=== PATIENT | male | born 1985 | race Caucasian/White ===

== ENCOUNTER 2020-06-20 18:02 | Emergency (ER) | payer BC, SELFPAY ==
[2020-06-20 18:10] VITALS: BP 132/71; PULSE 84; RESP 18; TEMP 36.6; O2SAT 96; BMI 33.9
--- NOTE | 2020-06-20 19:43 | ED_ITS ---
HPI - SOB/Dyspnea General Chief Complaint: Dyspnea Stated Complaint: sob, asthma Time Seen by Provider: 06/20/20 22:25 Source: patient Mode of arrival: ambulatory Limitations: no limitations History of Present Illness HPI Narrative: 35-year-old male with past medical history of asthma and cat allergy presents with 2 days of shortness of breath. He has been using his albuterol inhaler with poor effect. He is allergic to cats, does have 3 cats that live in his home and takes [id number] allergy medications on a daily basis. He states that his asthma symptoms and shortness of breath has worsened over the past 6 months. He does have some nasal and chest congestion, denies sick contacts and states to have been wearing a mask at all times when exposed to other persons. At this time he denies chest pain and pressure, palpitations, abdominal pain, abdominal distention, dysuria, hematuria, fevers, chills, and edema. MD elicited complaint: shortness of breath and asthma attack Pertinent past history: asthma Onset (ago): day(s) (2) Context: allergen exposure Timing: constant Severity: moderate Exacerbating factors: exertion, movement, coughing, inspiration, talking, cold air and deep breaths Relieving factors: nothing Known history of: asthma Associated symptoms: cough, wheezing and chest congestion Treatment prior to arrival: bronchodilator Related Data Home oxygen amount: none Previous Rx's Medication Instructions Recorded albuterol sulfate 2 puff INHALATION Q4-6H PRN #8.5 g 06/20/20 prednisone 60 mg PO DAILY 5 Days #15 tab 06/20/20 Allergies Allergy/AdvReac Type Severity Reaction Status Date / Time Cat/Feline Product Allergy Unknown UNKNOWN Uncoded 02/23/20 15:40 Derivatives Chocolate Allergy Unknown ANAPHYLAXIS Uncoded 02/23/20 15:40 Review of Systems Review of Systems: Constitutional: No Fever, No Chills ENT/Mouth: No Hoarseness, No sore throat, No Rhinorrhea Eyes: No Redness, No Discharge, No Vision Changes Cardiovascular: No Chest Pain, positive SOB, positive Dyspnea on Exertion, No Edema Respiratory: positive Cough, No Sputum, positive Wheezing, Gastrointestinal: No Nausea, No Vomiting, No Diarrhea, No abdominal Pain Genitourinary: No Dysuria, No Hematuria Musculoskeletal: No joint pain, No Myalgias Skin: No rash Neuro: No Weakness, No Numbness, No Headache Psych: No anxiety, depression Heme/Lymph: No Bruising, No Bleeding Endocrine: No Polyuria, No Polydipsia Yes all other systems are reviewed and are negative [facility] Past Medical History Attestation statement: The following information was validated with the patient. Medical History Asthma Eczema Social History Social History Advance Directives: No Advance Directives Information Provided: Yes Physical Exam Vital Signs: Vital Signs: Last Vital Signs Temp 97.9 F 06/20/20 18:10 Pulse 86 06/20/20 22:01 Resp 18 06/20/20 22:01 BP 133/62 06/20/20 22:01 Pulse Ox 97 06/20/20 22:01 Body Mass Index 33.9 Appearance: Alert. Oriented X3. Mild distress. Eyes: Pupils equal, round and reactive to light. ENT: Pharynx normal. Neck: Normal inspection. Neck supple. CVS: Normal heart rate and rhythm. Pulses normal. Respiratory: Mild respiratory distress, respiration rate 22, lung sounds diminished, inspiratory and expiratory wheezing throughout all lobes. Abdomen: Soft and nontender. Skin: Skin warm and dry. Normal skin color. Normal skin turgor. Extremities: No lower extremity edema. Neuro: No motor deficit. No sensory deficit. Course Course Course Narrative: 35-year-old male past medical history of asthma presents with 2 days of shortness of breath, cough, wheezing. He has been using his albuterol inhaler with poor effect. Will order dexamethasone, magnesium, L of normal saline. CBC, Chem 7, chest x-ray and COVID swab pending. Lab values are negative with no acute findings, chest x-ray is negative, COVID, influenza and RSV negative. At 10:52 p.m. Lung sounds have improved, respiration rate 16 even unlabored. Plan of care is to discharge home with prescription for prednisone and albuterol inhaler refill. Patient does understand if symptoms persist that he must return to the emergency department immediately. He does understand that although his COVID test is negative that he must maintain precautions. Patient verbalized understanding of and agrees to plan of care to discharge home. MDM - SOB/Dyspnea Differential Diagnosis Differential diagnosis: Likely acute exacerbation of chronic obstructive airways disease, pneumonia and asthma with exacerbation Medical Records Attestation: I reviewed the patient's medical records. Lab Data Attestation: I reviewed the patient's lab results. Result diagrams: 06/20/20 20:25 06/20/20 20:25 Labs: Lab Results 06/20/20 06/20/20 06/20/20 Range/Units 20:25 20:25 20:25 WBC 9.4 (4.8-10.8) X10*3/uL RBC 4.88 (4.60-5.80) X10*6/uL Hgb 14.5 (14.0-18.0) g/dl Hct 42.0 (42-52) % MCV 86.1 (80-98) fL MCH 29.7 (27.0-33.0) pg MCHC 34.5 (31.0-36.0) g/dl RDW 12.6 (11.0-16.0) % Plt Count 305 (160-400) X10*3/uL MPV 11.1 (9.4-12.4) fL Immature Gran % (Auto) 0.4 (0.0-0.4) % Neut % (Auto) 49.3 (45-73) % Lymph % (Auto) 34.5 (20-40) % [place] % (Auto) 8.1 (2-11) % Eos % (Auto) 6.9 H (0-4) % Baso % (Auto) 0.8 (0-2) % Lymph # (Auto) 3.3 (1.2-4.9) X10*3/uL [place] # (Auto) 0.8 (0.1-1.2) X10*3/uL Eos # (Auto) 0.7 H (0.0-0.4) X10*3/uL Baso # (Auto) 0.1 (0.0-0.2) X10*3/uL Abs Immat Gran (auto) 0.04 H (0.00-0.03) X10*3/uL Absolute Neuts (auto) 4.6 (2.0-8.3) X10*3/uL Absolute Nucleated RBC 0.000 (0.0-0.012) X10*3/uL Nucleated RBC % (auto) 0.0 (0.0-0.2) /100WBC Sodium 140 (135-145) mmol/L Potassium 4.3 (3.3-5.1) mmol/l Chloride 105 (96-108) mmol/L Carbon Dioxide 25 (22-29) mmol/L Anion Gap 14 (12-20) BUN 16 (9-16) mg/dL Creatinine 1.01 (0.5-1.4) mg/dL Estim Creat Clear Calc 135.2 Estimated GFR > 60 Random Glucose 99 (60-115) mg/dL Calcium 9.7 (8.4-10.2) mg/dL Magnesium 2.2 (1.6-2.6) mg/dL Coronavirus (PCR) NEGATIVE (Negative) Influenza Type A (PCR) NEGATIVE (Negative) Influenza Type B (PCR) NEGATIVE (Negative) RSV RNA Qual (PCR) NEGATIVE (Negative) Imaging Data Chest x-ray: Attestation: I personally reviewed and interpreted this imaging study as follows: Radiologist's impression: EXAMINATION: XR CHEST CLINICAL INFORMATION: Shortness of breath, asthma COMPARISON: 03/28/2019 TECHNIQUE: Frontal view of the chest was obtained. FINDINGS: No significant abnormality is noted involving the heart, lungs, mediastinum, bony thorax or soft tissues. XR/XR chest 1V IMPRESSION: Unremarkable examination. ECG Data Attestation: I personally reviewed and interpreted this ECG as follows: ECG interpretation date: 06/20/20 Prior ECG tracings: not available for review Discharge Plan Discharge Clinical Impression: Asthma with exacerbation Qualifiers: Asthma severity: moderate Asthma persistence: persistent Qualified Code(s): J4 5.41 - Moderate persistent asthma with (acute) exacerbation Patient Disposition: Home, Self-Care Instructions: Asthma (ED), Moderate and Severe Persistent Asthma (ED) Additional Instructions: You were evaluated for shortness of breath and cough. Your COVID, influenza and RSV test were negative. Chest x-ray negative for acute findings. Please continue to take your asthma medications as directed. Please take prednisone as directed. Take this medication in the morning. Drink plenty of fluids. If symptoms persist or get worse please return to emergency department immediately. Thank you for choosing this emergency department for evaluation. Please follow-up with primary care physician as needed. Return to the emergency department for any new, concerning, or worsening symptoms. Prescriptions: New prednisone 20 mg tablet 60 mg PO DAILY 5 Days Qty: 15 RF: 0 albuterol sulfate 90 mcg/actuation HFA aerosol inhaler 2 puff inhalation Q4-6H PRN (Reason: shortness of breath or wheezing) Qty: 8.5 RF: 0 Interventions: ED Discharge Assessment Last Done: 06/20/20 22:48 Discharge Date/Time: 06/20/20 22:51
--- NOTE | 2020-06-20 19:47 | XR_ITS ---
EXAMINATION: XR CHEST CLINICAL INFORMATION: Shortness of breath, asthma COMPARISON: 03/28/2019 TECHNIQUE: Frontal view of the chest was obtained. FINDINGS: No significant abnormality is noted involving the heart, lungs, mediastinum, bony thorax or soft tissues. XR/XR chest 1V IMPRESSION: Unremarkable examination.
--- NOTE | 2020-06-20 19:49 | ECG_ITS ---
Test Reason : SOB Blood Pressure : / mmHG Vent. Rate : 086 BPM Atrial Rate : 086 BPM P-R Int : 152 ms QRS Dur : 098 ms QT Int : 390 ms P-R-T Axes : 073 -06 038 degrees QTc Int : 466 ms Normal sinus rhythm Cannot rule out Inferior infarct , age undetermined Abnormal ECG When compared with ECG of 28-MAR-2019 23:35, Incomplete right bundle branch block is no longer Present Referred By: Sherly Garcia Electronically Signed By:DEN CASTRO MD
[2020-06-20] MEDS: 0.9 % Sodium Chloride 1,000 ML 999 ML IVCONT (20:26)
[2020-06-20] MEDS: dexAMETHasone sod phosphate 4 MG/ML VIAL 6 MG IVPUSH (20:30)
[2020-06-20] MEDS: Magnesium Sulfate/H2O 2 GM/50 ML PIGGYBACK IV (20:31)
[2020-06-20 20:34] LABS: MANUAL DIFF FLAG NO
[2020-06-20 20:37] LABS: Basophils Absolute Auto 0.1 X10*3/uL (0.0-0.2); Basophils Percent Auto 0.8 % (0-2); Eosinophils Absolute Auto 0.7 X10*3/uL (0.0-0.4); Eosinophils Percent Auto 6.9 % (0-4); Hemoglobin 14.5 g/dl (14.0-18.0); Imm Gran Abs Auto 0.04 X10*3/uL (0.00-0.03); Imm Gran Pct Auto 0.4 % (0.0-0.4); Lymphocytes Absolute Auto 3.3 X10*3/uL (1.2-4.9); Lymphocytes Percent Auto 34.5 % (20-40); Mean Corpuscular HGB Conc 34.5 g/dl (31.0-36.0); Mean Corpuscular Hemoglobin 29.7 pg (27.0-33.0); Mean Corpuscular Volume 86.1 fL (80-98); Mean Platelet Volume 11.1 fL (9.4-12.4); Monocytes Absolute Auto 0.8 X10*3/uL (0.1-1.2); Monocytes Percent Auto 8.1 % (2-11); Neutrophils Absolute Auto 4.6 X10*3/uL (2.0-8.3); Neutrophils Percent Auto 49.3 % (45-73); Platelet Count 305 X10*3/uL (160-400); Red Blood Count 4.88 X10*6/uL (4.60-5.80); Red Cell Distribution Width 12.6 % (11.0-16.0); White Blood Count 9.4 X10*3/uL (4.8-10.8)
[2020-06-20] MEDS: Albuterol Sulfate (0.083%) 2.5 MG/3 ML VIAL.NEB 7.5 MG INHALE (20:59)
[2020-06-20 21:00] VITALS: PULSE 84; O2SAT 96
[2020-06-20 21:01] LABS: Anion Gap 14 (12-20); Blood Urea Nitrogen 16 mg/dL (9-16); Calcium 9.7 mg/dL (8.4-10.2); Carbon Dioxide 25 mmol/L (22-29); Chloride 105 mmol/L (96-108); Creatinine Clr Calc Pharmacy 135.2; Estimated Glomerular Filt Rate > 60; Glucose Random 99 mg/dL (60-115); Magnesium 2.2 mg/dL (1.6-2.6); Potassium 4.3 mmol/l (3.3-5.1); Sodium 140 mmol/L (135-145)
[2020-06-20 21:12] LABS: Influenza A PCR NEGATIVE (Negative); Influenza B PCR NEGATIVE (Negative); Resp Syncy Virus RNA Qual PCR NEGATIVE (Negative); SARS COV2 PCR INHOUSE NEGATIVE (Negative)
[2020-06-20 22:01] VITALS: BP 133/62; PULSE 86; RESP 18; O2SAT 97
== END 2020-06-20 22:51 | disposition home or self-care (01) ==
PROVIDERS: Nurse Practitioner Family; Emergency Provider Internal Medicine
DX: J45.41 Moderate persistent asthma with (acute) exacerbation (principal); Z79.899 Other long term (current) drug therapy; Z20.822 Contact with and (suspected) exposure to COVID-19
CPT/HCPCS: 0241U; 36415; 71045; 80048; 83735; 85025; 93005; 94640; 94644; 96361; 96365; 96375; 99283; 99284; J1100; J3475

== ENCOUNTER 2020-11-01 11:07 | Emergency (ER) | payer OTHER, BC, SELFPAY ==
[2020-11-01 11:13] VITALS: BP 129/69; PULSE 82; RESP 18; TEMP 36.5; O2SAT 100; BMI 34.4
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
== END 2020-11-01 12:34 | disposition home or self-care (01) ==
PROVIDERS: Emergency Provider Emergency Medicine; PCP Internal Medicine
DX: S16.1XXA Strain of muscle, fascia and tendon at neck level, initial encounter (principal); M54.2 Cervicalgia; V40.5XXA Car driver injured in collision with pedestrian or animal in traffic accident, initial encounter; Y93.9 Activity, unspecified; Y92.410 Unspecified street and highway as the place of occurrence of the external cause; Y99.9 Unspecified external cause status; Z79.899 Other long term (current) drug therapy
CPT/HCPCS: 99283

== ENCOUNTER 2020-11-23 13:21 | Emergency (ER) | payer BC, SELFPAY ==
--- NOTE | ~2020-11-23 | XR_ITS ---
EXAMINATION: XR CHEST CLINICAL INFORMATION: Wheezing, SOB. COMPARISON: None TECHNIQUE: 2 views of the chest were obtained. FINDINGS: No significant abnormality is noted involving the heart, lungs, mediastinum, bony thorax or soft tissues. XR/XR chest 2V IMPRESSION: Unremarkable chest exam.
[2020-11-23 14:56] VITALS: BP 128/84; PULSE 101; RESP 20; TEMP 37; O2SAT 94; BMI 33.9
[2020-11-23 16:28] LABS: MANUAL DIFF FLAG NO
[2020-11-23 16:31] LABS: Basophils Absolute Auto 0.1 X10*3/uL (0.0-0.2); Basophils Percent Auto 0.4 % (0-2); Eosinophils Absolute Auto 0.6 X10*3/uL (0.0-0.4); Eosinophils Percent Auto 4.8 % (0-4); Hematocrit 42.9 % (42-52); Hemoglobin 14.6 g/dl (14.0-18.0); Imm Gran Abs Auto 0.07 X10*3/uL (0.00-0.03); Imm Gran Pct Auto 0.5 % (0.0-0.4); Lymphocytes Percent Auto 15.1 % (20-40); Mean Corpuscular Hemoglobin 29.4 pg (27.0-33.0); Mean Corpuscular Volume 86.3 fL (80-98); Mean Platelet Volume 11.2 fL (9.4-12.4); Monocytes Absolute Auto 1.3 X10*3/uL (0.1-1.2); Monocytes Percent Auto 9.7 % (2-11); Neutrophils Absolute Auto 9.3 X10*3/uL (2.0-8.3); Neutrophils Percent Auto 69.5 % (45-73); Platelet Count 275 X10*3/uL (160-400); Red Blood Count 4.97 X10*6/uL (4.60-5.80); Red Cell Distribution Width 12.5 % (11.0-16.0); White Blood Count 13.4 X10*3/uL (4.8-10.8)
[2020-11-23 16:56] LABS: Alanine Aminotransferase 80 U/L (0-40); Albumin Level 4.9 g/dL (3.5-5.0); Alkaline Phosphatase 71 U/L (39-117); Anion Gap 15 (12-20); Aspartate Amino Transferase 27 U/L (5-37); Bilirubin Total 0.5 mg/dL (0.0-1.0); Blood Urea Nitrogen 13 mg/dL (9-16); Calcium 9.8 mg/dL (8.4-10.2); Carbon Dioxide 26 mmol/L (22-29); Chloride 104 mmol/L (96-108); Creatinine Clr Calc Pharmacy 133.9; Estimated Glomerular Filt Rate > 60; Glucose Random 83 mg/dL (60-115); Potassium 4.6 mmol/L (3.3-5.1); Sodium 140 mmol/L (135-145); Total Protein 7.5 g/dL (6.5-8.0)
--- NOTE | 2020-11-23 16:58 | ED.SOB ---
HPI - SOB/Dyspnea General Chief Complaint: Dyspnea Stated Complaint: asthma Time Seen by Provider: 11/23/20 16:49 Source: patient Mode of arrival: ambulatory History of Present Illness HPI Narrative: 35-year-old male with a past medical history of asthma, eczema, presenting to ED complaining of sore throat x3 days, and SOB/wheezing, cough, and chest tightness/pain when coughing x1 day. Admits was tested for COVID-19 recently and negative as was trying to seek care for sore throat but would not be seen without COVID-19 testing. Has been using inhalers at home without relief. Denies fever, chills, recent travel, LE edema, calf pain, abdominal pain Related Data Previous Rx's Medication Instructions Recorded albuterol sulfate 2 puff INHALATION Q4-6H PRN #8.5 g 06/20/20 prednisone 60 mg PO DAILY 5 Days #15 tab 06/20/20 cyclobenzaprine 10 mg PO TID PRN #10 tab 11/01/20 ibuprofen 600 mg PO Q8H PRN #20 tab 11/01/20 lidocaine [Lidoderm] 1 patch TOPICAL DAILY #15 ea 11/01/20 benzonatate [Tessalon Perles] 100 mg PO TID PRN #14 cap 11/23/20 fluticasone propionate [Flonase 2 spray INTRANASAL DAILY #16 g 11/23/20 Allergy Relief] prednisone 40 mg PO DAILY 5 Days #10 tab 11/23/20 Allergies Allergy/AdvReac Type Severity Reaction Status Date / Time Cat/Feline Product Allergy Unknown UNKNOWN Uncoded 02/23/20 15:40 Derivatives Chocolate Allergy Unknown ANAPHYLAXIS Uncoded 02/23/20 15:40 Review of Systems Review of Systems: Constitutional: No Fever, No Chills, No Fatigue, No Malaise Cardiovascular: + Chest Pain when coughing, + SOB, No Dyspnea on Exertion, No Orthopnea Respiratory: + Cough, No Sputum, + Wheezing, + Dyspnea Gastrointestinal: No Nausea, No Vomiting, No Abdominal pain Musculoskeletal: No joint pain, No Myalgias Skin: No Skin Lesions, No rash Neuro: No Weakness, No Numbness, No Headache Yes all other systems are reviewed and are negative PMFSH Past Medical History Attestation statement: The following information was validated with the patient. Medical History Asthma Eczema Social History Social History Patient Tobacco Use Status: Current everyday Tobacco user Advance Directives: No Advance Directives Information Provided: No Physical Exam Vital Signs: Vital Signs: Last Vital Signs Temp 98.6 F 11/23/20 14:56 Pulse 103 H 11/23/20 18:00 Resp 14 11/23/20 18:00 BP 128/84 11/23/20 14:56 Pulse Ox 96 11/23/20 18:00 Body Mass Index 33.9 Const: General: cooperative and healthy appearing Orientation/consciousness: patient oriented x3 Limitations: no limitations HENMT: Head: Yes normal to inspection Ears: hearing grossly normal bilaterally General nose exam: Normal external nose present Face and sinus: Yes normal facial exam Throat: Yes posterior oropharynx normal, Yes tonsils normal, Yes uvula midline, No peritonsillar mass and No uvula laterally displaced Eyes: General: appearance normal, both eyes and all related structures EOM: EOMs intact bilaterally Neck: Neck: Yes normal visual inspection and Yes no meningeal signs Resp: Effort & Inspection: normal respiratory effort Auscultation: clear to auscultation bilaterally and wheezes expiratory wheezes and throughout Cardio: Rate: regular rate Heart sounds: S1 normal heart sound present and S2 normal heart sound present GI: Inspection: Yes normal to inspection Palpation (GI): Soft to palpation Skin: Rashes: no rashes Wounds: no wounds Neuro: General: patient oriented x3 and no meningeal signs Gait exam (Neuro): Normal gait present Extrem: General: Yes normal to inspection, Yes no pedal edema and Yes no calf tenderness Course Course Course Narrative: -leukocytosis of 13.4, labs otherwise unremarkable, COVID-19 negative, rapid strep negative XR chest 2V IMPRESSION: Unremarkable chest exam. -1900--on re-evaluation lungs CTA. Patient reports symptomatic improvement. Worrisome signs and symptoms and strict return precautions discussed. He verbalized understanding feel safe for discharge home MDM - SOB/Dyspnea MDM Narrative Medical decision making narrative: 35-year-old male with a past medical history of asthma, eczema, presenting to ED complaining of sore throat x3 days, and SOB/wheezing, cough, and chest tightness/pain when coughing x1 day. On exam initially tachycardic likely from albuterol, nontoxic appearing, diffuse expiratory wheezing throughout, no pedal edema or calf tenderness, oropharynx WNL. Concern for asthma exacerbation vs viral syndrome/COVID-19 vs pneumonia. Low concern for ACS/PE or strep pharyngitis. Plan: EKG, labs, CXR, COVID-19 testing, rapid strep, albuterol, magnesium, Solu-Medrol, reassess Lab Data Result diagrams: 11/23/20 16:04 11/23/20 16:04 Labs: Lab Results 11/23/20 11/23/20 11/23/20 Range/Units 16:04 16:04 17:46 WBC 13.4 H (4.8-10.8) X10*3/uL RBC 4.97 (4.60-5.80) X10*6/uL Hgb 14.6 (14.0-18.0) g/dl Hct 42.9 (42-52) % MCV 86.3 (80-98) fL MCH 29.4 (27.0-33.0) pg MCHC 34.0 (31.0-36.0) g/dl RDW 12.5 (11.0-16.0) % Plt Count 275 (160-400) X10*3/uL MPV 11.2 (9.4-12.4) fL Immature Gran % (Auto) 0.5 H (0.0-0.4) % Neut % (Auto) 69.5 (45-73) % Lymph % (Auto) 15.1 L (20-40) % [place] % (Auto) 9.7 (2-11) % Eos % (Auto) 4.8 H (0-4) % Baso % (Auto) 0.4 (0-2) % Lymph # (Auto) 2.0 (1.2-4.9) X10*3/uL [place] # (Auto) 1.3 H (0.1-1.2) X10*3/uL Eos # (Auto) 0.6 H (0.0-0.4) X10*3/uL Baso # (Auto) 0.1 (0.0-0.2) X10*3/uL Abs Immat Gran (auto) 0.07 H (0.00-0.03) X10*3/uL Absolute Neuts (auto) 9.3 H (2.0-8.3) X10*3/uL Absolute Nucleated RBC 0.000 (0.0-0.012) X10*3/uL Nucleated RBC % (auto) 0.0 (0.0-0.2) /100WBC Sodium 140 (135-145) mmol/L Potassium 4.6 (3.3-5.1) mmol/L Chloride 104 (96-108) mmol/L Carbon Dioxide 26 (22-29) mmol/L Anion Gap 15 (12-20) BUN 13 (9-16) mg/dL Creatinine 1.02 (0.5-1.4) mg/dL Estim Creat Clear Calc 133.9 Estimated GFR > 60 Random Glucose 83 (60-115) mg/dL Calcium 9.8 (8.4-10.2) mg/dL Total Bilirubin 0.5 (0.0-1.0) mg/dL AST 27 (5-37) U/L ALT 80 H (0-40) U/L Alkaline Phosphatase 71 (39-117) U/L Total Protein 7.5 (6.5-8.0) g/dL Albumin 4.9 (3.5-5.0) g/dL Coronavirus (PCR) (Negative) Influenza Type A (PCR) (Negative) Influenza Type B (PCR) (Negative) RSV RNA Qual (PCR) (Negative) S. pyogenes GrpA GHISLAINE Negative (Negative) 11/23/20 Range/Units 17:46 WBC (4.8-10.8) X10*3/uL RBC (4.60-5.80) X10*6/uL Hgb (14.0-18.0) g/dl Hct (42-52) % MCV (80-98) fL MCH (27.0-33.0) pg MCHC (31.0-36.0) g/dl RDW (11.0-16.0) % Plt Count (160-400) X10*3/uL MPV (9.4-12.4) fL Immature Gran % (Auto) (0.0-0.4) % Neut % (Auto) (45-73) % Lymph % (Auto) (20-40) % [place] % (Auto) (2-11) % Eos % (Auto) (0-4) % Baso % (Auto) (0-2) % Lymph # (Auto) (1.2-4.9) X10*3/uL [place] # (Auto) (0.1-1.2) X10*3/uL Eos # (Auto) (0.0-0.4) X10*3/uL Baso # (Auto) (0.0-0.2) X10*3/uL Abs Immat Gran (auto) (0.00-0.03) X10*3/uL Absolute Neuts (auto) (2.0-8.3) X10*3/uL Absolute Nucleated RBC (0.0-0.012) X10*3/uL Nucleated RBC % (auto) (0.0-0.2) /100WBC Sodium (135-145) mmol/L Potassium (3.3-5.1) mmol/L Chloride (96-108) mmol/L Carbon Dioxide (22-29) mmol/L Anion Gap (12-20) BUN (9-16) mg/dL Creatinine (0.5-1.4) mg/dL Estim Creat Clear Calc Estimated GFR Random Glucose (60-115) mg/dL Calcium (8.4-10.2) mg/dL Total Bilirubin (0.0-1.0) mg/dL AST (5-37) U/L ALT (0-40) U/L Alkaline Phosphatase (39-117) U/L Total Protein (6.5-8.0) g/dL Albumin (3.5-5.0) g/dL Coronavirus (PCR) NEGATIVE (Negative) Influenza Type A (PCR) NEGATIVE (Negative) Influenza Type B (PCR) NEGATIVE (Negative) RSV RNA Qual (PCR) NEGATIVE (Negative) S. pyogenes GrpA GHISLAINE (Negative) Discharge Plan Discharge Clinical Impression: Asthma with exacerbation Patient Disposition: Home, Self-Care Instructions: Asthma (ED) Additional Instructions: Your blood work was reassuring. You tested negative for the flu, RSV, and COVID-19. Her rapid strep is negative. Your x-ray was unremarkable. Continue to use your rescue inhaler and her nebulizer machine at home Prednisone as an oral steroid, take as prescribed. In addition use Flonase as a nasal decongestion. Tessalon Perles for cough If her symptoms persist or worsen, shortness of breath persists or worsens, you develop fever please return to the ED Prescriptions: New prednisone 20 mg tablet 40 mg PO DAILY 5 Days Qty: 10 RF: 0 benzonatate [Tessalon Perles] 100 mg capsule 100 mg PO TID PRN (Reason: cough) Qty: 14 RF: 0 fluticasone propionate [Flonase Allergy Relief] 50 mcg/actuation spray,suspension 2 spray intranasal DAILY Qty: 16 RF: 0 No Action prednisone 20 mg tablet 60 mg PO DAILY 5 Days Qty: 15 RF: 0 albuterol sulfate 90 mcg/actuation HFA aerosol inhaler 2 puff inhalation Q4-6H PRN (Reason: shortness of breath or wheezing) Qty: 8.5 RF: 0 cyclobenzaprine 10 mg tablet 10 mg PO TID PRN (Reason: muscle spasm) Qty: 10 RF: 0 lidocaine [Lidoderm] 5 % adhesive patch,medicated 1 patch topical DAILY Qty: 15 RF: 0 ibuprofen 600 mg tablet 600 mg PO Q8H PRN (Reason: pain) Qty: 20 RF: 0 Referrals: ED Physician,Generic [Emergency Provider] - 2 days
--- NOTE | 2020-11-23 17:03 | ECG_ITS ---
Test Reason : SHORTNESS OF BREATH Blood Pressure : / mmHG Vent. Rate : 096 BPM Atrial Rate : 096 BPM P-R Int : 158 ms QRS Dur : 096 ms QT Int : 350 ms P-R-T Axes : 060 014 057 degrees QTc Int : 442 ms Normal sinus rhythm Incomplete right bundle branch block Borderline ECG When compared with ECG of 20-JUN-2020 21:44, Incomplete right bundle branch block is now Present Minimal criteria for Inferior infarct are no longer Present Referred By: Joan Perry Electronically Signed By:ROSS RONQUILLO
[2020-11-23] MEDS: methylPREDNISolone Sod Succ 125 MG/2 ML VIAL IVPUSH (17:40)
[2020-11-23] MEDS: Magnesium Sulfate/H2O 2 GM/50 ML PIGGYBACK IV (17:40)
[2020-11-23] MEDS: Albuterol Sulfate (0.083%) 2.5 MG/3 ML VIAL.NEB 7.5 MG INHALE (17:45)
[2020-11-23 17:49] VITALS: PULSE 103; O2SAT 96
[2020-11-23 18:00] VITALS: PULSE 103; RESP 14; O2SAT 96
[2020-11-23 18:00] LABS: Strep A Nucleic Acid Negative (Negative)
[2020-11-23 18:30] LABS: Influenza A PCR NEGATIVE (Negative); Influenza B PCR NEGATIVE (Negative); Resp Syncy Virus RNA Qual PCR NEGATIVE (Negative); SARS COV2 PCR INHOUSE NEGATIVE (Negative)
== END 2020-11-23 19:18 | disposition home or self-care (01) ==
PROVIDERS: Physician Assistant; Emergency Provider Internal Medicine
DX: J45.901 Unspecified asthma with (acute) exacerbation (principal); Z79.899 Other long term (current) drug therapy; Z20.822 Contact with and (suspected) exposure to COVID-19
CPT/HCPCS: 0241U; 36415; 71046; 80053; 85025; 87651; 93005; 94640; 94644; 96365; 96366; 96375; 99284; 99285; J2930; J3475

== ENCOUNTER 2021-04-14 08:33 | Emergency (ER) | payer BC, SELFPAY ==
--- NOTE | ~2021-04-14 | XR_ITS ---
EXAMINATION: XR CHEST CLINICAL INFORMATION: Cough. COMPARISON: 11/23/2020 chest radiographs. TECHNIQUE: Frontal view of the chest was obtained. FINDINGS: No significant abnormality is noted involving the heart, lungs, mediastinum, bony thorax or soft tissues. XR/XR chest 1V IMPRESSION: No acute cardiopulmonary process.
[2021-04-14 08:39] VITALS: BP 121/72; PULSE 88; RESP 16; TEMP 36.6; O2SAT 95; BMI 34.2
--- NOTE | 2021-04-14 09:07 | ED.ASTHMA ---
HPI - Asthma General Chief Complaint: Asthma Stated Complaint: diff breathing Time Seen by Provider: 04/14/21 09:00 Source: patient Mode of arrival: ambulatory Limitations: no limitations History of Present Illness complaint: asthma attack , shortness of breath and wheezing Onset (ago): day(s) (last night) Severity: moderate Context: other (forgot to wear his respirator during karoline job at work) Associated symptoms: dry cough Asthma History: childhood onset Treatments Prior to Arrival: inhaled bronchodilator and other (tried his nebulizer without relief) Related Data Previous Rx's Medication Instructions Recorded albuterol sulfate 90 mcg/actuation 2 puff INHALATION Q4-6H PRN #8.5 g 06/20/20 aerosol inhaler prednisone 20 mg tablet 60 mg PO DAILY 5 Days #15 tab 06/20/20 cyclobenzaprine 10 mg tablet 10 mg PO TID PRN #10 tab 11/01/20 ibuprofen 600 mg tablet 600 mg PO Q8H PRN #20 tab 11/01/20 lidocaine 5 % topical patch 1 patch TOPICAL DAILY #15 ea 11/01/20 (Lidoderm) benzonatate 100 mg capsule 100 mg PO TID PRN #14 cap 11/23/20 (Tessalon Perles) fluticasone propionate 50 2 spray INTRANASAL DAILY #16 g 11/23/20 mcg/actuation nasal spray,suspension (Flonase Allergy Relief) prednisone 20 mg tablet 40 mg PO DAILY 5 Days #10 tab 11/23/20 albuterol sulfate 2.5 mg (3 mL) INHALATION Q4-6H PRN 04/14/21 #75 ml albuterol sulfate 90 mcg/actuation 2 puff INHALATION QID PRN #6.7 g 04/14/21 aerosol inhaler prednisone 20 mg tablet 60 mg PO DAILY 4 Days #12 tab 04/14/21 Allergies Allergy/AdvReac Type Severity Reaction Status Date / Time Cat/Feline Product Allergy Unknown UNKNOWN Uncoded 02/23/20 15:40 Derivatives Chocolate Allergy Unknown ANAPHYLAXIS Uncoded 02/23/20 15:40 Review of Systems Review of Systems: Constitutional : No Fever, No Chills ENT/Mouth : No Hoarseness, No sore throat, No Rhinorrhea Eyes: No Redness, No Discharge, No Vision Changes Cardiovascular : No Chest Pain, positive SOB, positive Dyspnea on Exertion, No Edema Respiratory : positive Cough, No Sputum, positive Wheezing, Gastrointestinal : No Nausea, No Vomiting, No Diarrhea, No abdominal Pain Genitourinary : No Dysuria, No Hematuria Musculoskeletal : No joint pain, No Myalgias Skin : No rash Neuro : No Weakness, No Numbness, No Headache Psych : No anxiety, depression All other systems reviewed and are negative [facility] Past Medical History Attestation statement: The following information was validated with the patient. Medical History Asthma Eczema Social History Social History Patient Tobacco Use Status: Current everyday Tobacco user Advance Directives: No Physical Exam Vital Signs: Vital Signs: Last Vital Signs Temp 98 F 04/14/21 08:39 Pulse 94 04/14/21 09:30 Resp 16 04/14/21 08:39 BP 121/72 04/14/21 08:39 Pulse Ox 95 04/14/21 08:39 Body Mass Index 34.2 Appearance: Alert. Oriented X3. No acute distress. Eyes: Pupils equal, round and reactive to light. ENT: Pharynx normal. Neck: Normal inspection. Neck supple. CVS: Normal heart rate and rhythm. Pulses normal. Respiratory: No respiratory distress. Breath sounds diminished Abdomen: Soft and nontender. Skin: Skin warm and dry. Normal skin color. Normal skin turgor. Extremities: No lower extremity edema. No calf ttp Neuro: Oriented X 3. No motor deficit. No sensory deficit. Course Course Course Narrative: no hypoxia feels better stable for DC MDM - Asthma MDM Narrative Medical decision making narrative: 35 yo male with asthma here with c/o dust exposure and cough - at this time will swab for COVID, CXR for pneumonitis - PO steroids, neb treatment no distress, anticipate he will need steroids to go home Lab Data Labs: Lab Results 04/14/21 Range/Units 09:12 COVID-19 (HUGO) Negative (Negative) COVID-19 Clin Com See Note Discharge Plan Discharge Clinical Impression: Asthma with acute exacerbation Patient Disposition: Home, Self-Care Instructions: Asthma (ED) Additional Instructions: return to ED for any worsening symptoms or concerns COVID NEGATIVE CHEST XRAY NORMAL START PREDNISONE ON 04/15 YOU WERE GIVEN A DOSE IN THE EMERGENCY DEPARTMENT ALREADY TODAY Prescriptions: New albuterol sulfate 2.5 mg /3 mL (0.083 %) solution for nebulization 2.5 mg inhalation Q4-6H PRN (Reason: bronchospasm) Qty: 75 RF: 0 prednisone 20 mg tablet 60 mg PO DAILY 4 Days Qty: 12 RF: 0 albuterol sulfate 90 mcg/actuation HFA aerosol inhaler 2 puff inhalation QID PRN (Reason: shortness of breath or wheezing) Qty: 6.7 RF: 0 No Action prednisone 20 mg tablet 60 mg PO DAILY 5 Days Qty: 15 RF: 0 albuterol sulfate 90 mcg/actuation HFA aerosol inhaler 2 puff inhalation Q4-6H PRN (Reason: shortness of breath or wheezing) Qty: 8.5 RF: 0 cyclobenzaprine 10 mg tablet 10 mg PO TID PRN (Reason: muscle spasm) Qty: 10 RF: 0 lidocaine [Lidoderm] 5 % adhesive patch,medicated 1 patch topical DAILY Qty: 15 RF: 0 ibuprofen 600 mg tablet 600 mg PO Q8H PRN (Reason: pain) Qty: 20 RF: 0 prednisone 20 mg tablet 40 mg PO DAILY 5 Days Qty: 10 RF: 0 benzonatate [Tessalon Perles] 100 mg capsule 100 mg PO TID PRN (Reason: cough) Qty: 14 RF: 0 fluticasone propionate [Flonase Allergy Relief] 50 mcg/actuation spray,suspension 2 spray intranasal DAILY Qty: 16 RF: 0 Referrals: Physician,None [Primary Care Provider] - 2 days (if not better) Stand Alone Forms: Work/School Release
[2021-04-14] MEDS: predniSONE 20 MG TABLET 60 MG PO (09:21)
[2021-04-14] MEDS: Albuterol Sulfate (0.083%) 2.5 MG/3 ML VIAL.NEB INHALE (09:27)
[2021-04-14 09:30] VITALS: PULSE 94; O2SAT 100
[2021-04-14 09:37] LABS: COVID-19 Test Negative (Negative); IDNOW Serial# 9DD0AD1C
== END 2021-04-14 10:06 | disposition home or self-care (01) ==
PROVIDERS: Emergency Provider Emergency Medicine
DX: J45.901 Unspecified asthma with (acute) exacerbation (principal); R06.02 Shortness of breath; Z20.822 Contact with and (suspected) exposure to COVID-19; F17.200 Nicotine dependence, unspecified, uncomplicated
CPT/HCPCS: 36415; 71045; 87635; 94640; 99283; 99284

== ENCOUNTER 2021-10-31 04:13 | Emergency (ER) | payer OTHER, BC, SELFPAY ==
--- NOTE | ~2021-10-31 | XR_ITS ---
EXAMINATION: XR CHEST CLINICAL INFORMATION: Right rib pain COMPARISON: 04/14/2021 TECHNIQUE: 2 views of the chest were obtained. FINDINGS: The lungs are clear with no focal consolidation. No evidence of pneumothorax, pulmonary edema, or pleural effusions. The cardiomediastinal silhouette is unremarkable. No acute osseous findings. XR/XR chest 2V IMPRESSION: No acute findings.
[2021-10-31 04:18] VITALS: BP 119/79; PULSE 78; RESP 16; TEMP 36.2; O2SAT 97; BMI 37.3
--- NOTE | 2021-10-31 05:45 | ED_ITS ---
HPI - General Adult General Chief complaint: General Medical Stated complaint: Rib/stomach pain Time Seen by Provider: 10/31/21 05:45 Source: patient Mode of arrival: ambulatory Limitations: no limitations History of Present Illness HPI narrative: Lifting something heavy felt pain on the right side. The pain states worse pain with deep breathing. Onset (ago): day(s) Location: back Radiation: back Severity: mild Exacerbating factors: movement Related Data Previous Rx's Medication Instructions Recorded albuterol sulfate 90 mcg/actuation 2 puff INHALATION Q4-6H PRN #8.5 g 06/20/20 aerosol inhaler prednisone 20 mg tablet 60 mg PO DAILY 5 Days #15 tab 06/20/20 cyclobenzaprine 10 mg tablet 10 mg PO TID PRN #10 tab 11/01/20 ibuprofen 600 mg tablet 600 mg PO Q8H PRN #20 tab 11/01/20 lidocaine 5 % topical patch 1 patch TOPICAL DAILY #15 ea 11/01/20 (Lidoderm) benzonatate 100 mg capsule 100 mg PO TID PRN #14 cap 11/23/20 (Tessalon Perles) fluticasone propionate 50 2 spray INTRANASAL DAILY #16 g 11/23/20 mcg/actuation nasal spray,suspension (Flonase Allergy Relief) prednisone 20 mg tablet 40 mg PO DAILY 5 Days #10 tab 11/23/20 albuterol sulfate 2.5 mg (3 mL) INHALATION Q4-6H PRN 04/14/21 #75 ml albuterol sulfate 90 mcg/actuation 2 puff INHALATION QID PRN #6.7 g 04/14/21 aerosol inhaler prednisone 20 mg tablet 60 mg PO DAILY 4 Days #12 tab 04/14/21 cyclobenzaprine 10 mg tablet 10 mg PO TID #10 tab 10/31/21 naproxen 500 mg tablet (Naprosyn) 500 mg PO BID #20 tab 10/31/21 Allergies Allergy/AdvReac Type Severity Reaction Status Date / Time Cat/Feline Product Allergy Unknown UNKNOWN Uncoded 10/31/21 04:21 Derivatives Chocolate Allergy Unknown ANAPHYLAXIS Uncoded 10/31/21 04:21 Review of Systems Constitutional: Constitutional: Reports no additional constitutional complaints Eyes: Eyes: Reports no additional eye complaints ENT: Denies dizziness Cardiovascular: Cardiovascular: Reports no additional cardiovascular complaints Respiratory: Respiratory: Reports as per HPI Gastrointestinal: Gastrointestinal: Reports no additional gastrointestinal complaints Musculoskeletal: Musculoskeletal: Reports no additional musculoskeletal complaints Integumentary/Breasts: Skin/Breast: Denies rash Neurologic: Reports system reviewed and no additional complaints, except as documented, Denies dizziness and Denies Sensory deficit (Neuro) Psychiatric: Psychiatric: Denies anxiety [facility] Past Medical History Medical History Asthma Eczema Social History Social History Patient Tobacco Use Status: Current everyday Tobacco user Advance Directives: No Advance Directives Information Provided: No Physical Exam ED Vital Signs: Vital Signs - 24 hr 10/31/21 04:18 Temperature 97.2 F Pulse Rate 78 Respiratory Rate 16 Blood Pressure 119/79 Pulse Oximetry 97 BMI result Body Mass Index 37.3 Neuro Sensory Exam: No Sensory deficit (Neuro) Course Reevaluation(s) Reevaluation #1: will treat patient for muscular thoracic back pain Time: 06:35 Medical Decision Making Imaging Data Chest x-ray: Radiologist's impression: FINDINGS: The lungs are clear with no focal consolidation. No evidence of pneumothorax, pulmonary edema, or pleural effusions. The cardiomediastinal silhouette is unremarkable. No acute osseous findings. XR/XR chest 2V IMPRESSION: No acute findings. Discharge Plan Discharge Clinical Impression: Back pain, thoracic Patient Disposition: Home, Self-Care Instructions: Thoracic Pain (ED) Prescriptions: New cyclobenzaprine 10 mg tablet 10 mg PO TID Qty: 10 0RF naproxen [Naprosyn] 500 mg tablet 500 mg PO BID Qty: 20 0RF No Action prednisone 20 mg tablet 60 mg PO DAILY 5 Days Qty: 15 0RF albuterol sulfate 90 mcg/actuation HFA aerosol inhaler 2 puff inhalation Q4-6H PRN (Reason: shortness of breath or wheezing) Qty: 8.5 0RF cyclobenzaprine 10 mg tablet 10 mg PO TID PRN (Reason: muscle spasm) Qty: 10 0RF lidocaine [Lidoderm] 5 % adhesive patch,medicated 1 patch topical DAILY Qty: 15 0RF Rx Instructions: leave on most painful area for up to 12 hrs ibuprofen 600 mg tablet 600 mg PO Q8H PRN (Reason: pain) Qty: 20 0RF prednisone 20 mg tablet 40 mg PO DAILY 5 Days Qty: 10 0RF benzonatate [Tessalon Perles] 100 mg capsule 100 mg PO TID PRN (Reason: cough) Qty: 14 0RF fluticasone propionate [Flonase Allergy Relief] 50 mcg/actuation spray,suspension 2 spray intranasal DAILY Qty: 16 0RF Rx Instructions: administer into each nostril albuterol sulfate 2.5 mg /3 mL (0.083 %) solution for nebulization 2.5 mg inhalation Q4-6H PRN (Reason: bronchospasm) Qty: 75 0RF prednisone 20 mg tablet 60 mg PO DAILY 4 Days Qty: 12 0RF albuterol sulfate 90 mcg/actuation HFA aerosol inhaler 2 puff inhalation QID PRN (Reason: shortness of breath or wheezing) Qty: 6.7 0RF Referrals: Physician,Unknown J [Primary Care Provider] - 1 week
[2021-10-31] MEDS: Cyclobenzaprine HCl 10 MG TABLET PO (06:26)
[2021-10-31] MEDS: Ketorolac Tromethamine 60 MG/2 ML VIAL IM (06:26)
== END 2021-10-31 06:49 | disposition home or self-care (01) ==
PROVIDERS: Emergency Provider Emergency Medicine
DX: M54.6 Pain in thoracic spine (principal); F17.200 Nicotine dependence, unspecified, uncomplicated
CPT/HCPCS: 71046; 96372; 99282; 99284; J1885

== ENCOUNTER 2022-07-18 06:28 | Emergency (ER) | payer BC, SELFPAY ==
--- NOTE | ~2022-07-18 | CT_ITS ---
EXAMINATION: CT ABDOMEN AND PELVIS WITHOUT CONTRAST CLINICAL INFORMATION: Left lower quadrant pain COMPARISON: None TECHNIQUE: Multidetector volumetric imaging was performed from the superior aspect of the liver through the pubic symphysis. Sagittal and coronal reformatted images were obtained on the technologist's workstation. This CT examination was performed using dose optimization techniques as appropriate, variously including the following: *Automated exposure control *Adjustment of mA and/or kV according to patient size (this includes techniques or standardized protocols for targeted exams where dose is matched to indication/reason for exam; i.e. extremities or head) *Use of iterative reconstruction technique DLP: 831 mGy-cm FINDINGS: LUNG BASES: Minimal lingular atelectasis. LIVER, GALLBLADDER, AND BILIARY TREE: Hepatic fatty infiltration. The gallbladder is unremarkable with no evidence of radiopaque gallstones, gallbladder wall thickening, or obvious pericholecystic inflammatory changes. PANCREAS: Unremarkable. SPLEEN: Unremarkable. ADRENAL GLANDS: Unremarkable. KIDNEYS AND URETERS: The kidneys are normal in size, shape, and attenuation. No hydronephrosis, hydroureter, or calculi seen. No perinephric stranding. BLADDER: Unremarkable. GASTROINTESTINAL TRACT: Diverticulosis, particularly at the sigmoid level. Segmental sigmoid wall thickening with paracolic infiltrative changes consistent with acute diverticulitis. Appendix slightly prominent at 6 to 7 mm without periappendiceal infiltrative changes. Small sliding-type hiatal hernia. No small bowel obstructive process or abnormal omental thickening. ABDOMINAL WALL: No significant hernia is appreciated. LYMPH NODES: No suspiciously enlarged lymphadenopathy, with small nodes seen. VASCULAR: Unremarkable. PELVIC VISCERA: No suspicious pelvic masses. OSSEOUS STRUCTURES: No compression fractures. CT/CT abdomen pelvis wo IV con IMPRESSION: CT findings appearing consistent with acute sigmoid diverticulitis. Appendix slightly prominent at 6 to 7 mm but without periappendiceal infiltrative changes. Clinical correlation recommended. Other incidental findings as noted above. Fleischner guidelines were followed.
[2022-07-18 06:40] VITALS: BP 125/79; PULSE 91; RESP 18; TEMP 36.2; O2SAT 96; BMI 37.3
[2022-07-18 07:38] LABS: Basophils Absolute Auto 0.1 X10*3/uL (0.0-0.2); Basophils Percent Auto 0.5 % (0-2); Eosinophils Absolute Auto 0.4 X10*3/uL (0.0-0.4); Eosinophils Percent Auto 3.2 % (0-4); Hematocrit 41.5 % (42.0-52.0); Hemoglobin 14.4 g/dl (14.0-18.0); Imm Gran Abs Auto 0.04 X10*3/uL (0.00-0.03); Imm Gran Pct Auto 0.3 % (0.0-0.4); Lymphocytes Percent Auto 15.8 % (20-40); MANUAL DIFF FLAG NO; Mean Corpuscular HGB Conc 34.7 g/dl (31.0-36.0); Mean Corpuscular Hemoglobin 29.8 pg (27.0-33.0); Mean Corpuscular Volume 85.7 fL (80.0-98.0); Mean Platelet Volume 10.9 fL (9.4-12.4); Neutrophils Absolute Auto 9.3 x10*3/uL (2.0-8.3); Neutrophils Percent Auto 72.2 % (45-73); Platelet Count 259 X10*3/uL (160-400); Red Blood Count 4.84 X10*6/uL (4.60-5.80); Red Cell Distribution Width 12.2 % (11.0-16.0); White Blood Count 12.8 X10*3/uL (4.8-10.8)
--- NOTE | 2022-07-18 07:46 | PC.NURSE ---
pt is a/o x 4 no sob/bijan noted, speaks in full sentences.lungs - cta. heart sounds - regular. abd soft and tender lower abd/bladder area. r testicle appears slightly swollen. last bm this am (vesna, per pt). pt aware of plan of care.
[2022-07-18 08:03] LABS: Anion Gap 14 (12-20); Blood Urea Nitrogen 18 mg/dL (9-16); Calcium 9.5 mg/dL (8.4-10.2); Carbon Dioxide 25 mmol/L (22-29); Chloride 107 mmol/L (96-108); Creatinine Clr Calc Pharmacy 149.6; Estimated Glomerular Filt Rate > 60; Glucose Random 105 mg/dL (60-115); Lipase 15 U/L (8-78); Potassium 4.6 mmol/L (3.3-5.1); Sodium 141 mmol/L (135-145)
[2022-07-18 08:19] LABS: Appearance Urine Clear; Color Urine Yellow; Glucose Urine UA Negative (Negative); Leukocyte Esterase Urine Negative (Negative); Nitrite Urine Negative (Negative); PH 6.5 (5.0-9.0); Specific Gravity - Urine 1.025 (1.005-1.025); Urine Blood Negative (Negative); Urine Ketones Negative (Negative); Urine Protein Trace mg/dL (Neg-Trace)
[2022-07-18 08:22] LABS: Bacteria Urine None Seen (None Seen); Hyaline Casts Urine 0-2 /LPF (0-2); RBC Urine 0-2 /HPF (0-2); Squamous Epithelial Cell Urine 0-2 /HPF (0-2); WBC Urine 0-5 /HPF (0-5)
--- NOTE | 2022-07-18 09:11 | ED.ABDPAIN ---
HPI - Abdominal Pain General Chief Complaint: Abdominal Pain Stated Complaint: Abd pain Time Seen by Provider: 07/18/22 06:56 Source: patient Mode of arrival: ambulatory History of Present Illness HPI narrative: This is a 37-year-old male who presents with left lower quadrant discomfort that he thought at was associated with constipation and this pain started on Thursday evening. He reports he has had some chills but denies any nausea or vomiting or urinary symptoms but states he is having burning pain into his testicles. Patient does get a colonoscopy every 3 years for a family history of early colon cancer and his last colonoscopy was 3 years ago. Related Data Previous Rx's Medication Instructions Recorded albuterol sulfate 90 mcg/actuation 2 puff inhalation Q4-6H PRN 06/20/20 aerosol inhaler shortness of breath or wheezing #8.5 grams prednisone 20 mg tablet 60 mg PO DAILY 5 days #15 tabs 06/20/20 cyclobenzaprine 10 mg tablet 10 mg PO TID PRN muscle spasm #10 11/01/20 tabs ibuprofen 600 mg tablet 600 mg PO Q8H PRN pain #20 tabs 11/01/20 lidocaine 5 % topical patch 1 patch topical DAILY #15 ea 11/01/20 (Lidoderm) benzonatate 100 mg capsule 100 mg PO TID PRN cough #14 caps 11/23/20 (Tessalon Perles) fluticasone propionate 50 2 spray intranasal DAILY #16 grams 11/23/20 mcg/actuation nasal spray,suspension (Flonase Allergy Relief) prednisone 20 mg tablet 40 mg PO DAILY 5 days #10 tabs 11/23/20 albuterol sulfate 2.5 mg/3 mL 2.5 mg (3 mL) inhalation Q4-6H PRN 04/14/21 (0.083 %) solution for nebulization bronchospasm #75 mL albuterol sulfate 90 mcg/actuation 2 puff inhalation QID PRN 04/14/21 aerosol inhaler shortness of breath or wheezing #6.7 grams prednisone 20 mg tablet 60 mg PO DAILY 4 days #12 tabs 04/14/21 cyclobenzaprine 10 mg tablet 10 mg PO TID #10 tabs 10/31/21 naproxen 500 mg tablet (Naprosyn) 500 mg PO BID #20 tabs 10/31/21 amoxicillin 875 mg-potassium 1 tab PO Q12H 10 days #20 tabs 07/18/22 clavulanate 125 mg tablet Allergies Allergy/AdvReac Type Severity Reaction Status Date / Time Cat/Feline Product Allergy Unknown UNKNOWN Uncoded 10/31/21 04:21 Derivatives Chocolate Allergy Unknown ANAPHYLAXIS Uncoded 10/31/21 04:21 Review of Systems Review of Systems Pertinent positives and negatives as stated in HPI [facility] Past Medical History Source: nursing notes reviewed Medical History Asthma Eczema Social History Social History Patient Tobacco Use Status: Current everyday Tobacco user Smoked in Last 30 Days: No Use of substances other than those prescribed or required for medical reasons: No Advance Directives: No Advance Directives Information Provided: Yes Physical Exam ED Vital Signs: Vital Signs - 24 hr 07/18/22 06:40 Temperature 97.2 F Pulse Rate 91 Respiratory Rate 18 Blood Pressure 125/79 Pulse Oximetry 96 Oxygen Delivery Method Room Air BMI result Body Mass Index 37.3 VITAL SIGNS: Reviewed. GENERAL: Well developed, well nourished, in no acute distress. HEAD: Normocephalic/atraumatic EYES: PERRLA, EOMI EARS: Ext canals without abnormality OROPHARYNX: no oral lesions noted, posterior pharynx clear LUNGS: Normal breath sounds. No adventitious sounds or accessory muscle use. SpO2<96> CARDIOVASCULAR: Regular rate and rhythm without noted murmurs ABDOMEN: Soft, lower abdominal discomfort on deep palpation, no rebound, non-distended with bowel sounds. MUSCULOSKELETAL: No tenderness, deformities, or effusions noted on gross inspection. EXTREMITIES: No cyanosis, clubbing or edema. SKIN: Inspection of the skin reveals no rashes NEUROLOGIC: Alert and oriented x 4. Strength and sensation to light touch were grossly intact x 4. Medical Decision Making Medical Decision Making MDM Narrative: 37-year-old male with history and clinical presentation suggestive of possible renal colic/diverticulitis. On review of all investigations my interpretation is as patient has acute uncomplicated diverticulitis. Patient received combination analgesics as well as initial antibiotics and be discharged home in stable condition with instructions to follow-up with his primary care provider as well as Gastroenterology for which he will receive a referral. Differential Diagnosis Differential Diagnoses: The differential diagnosis associated with the presentation includes Please see the discussion above Lab Data MDM Lab Attestation statement: I reviewed the patient's lab results. Please see the discussion above 07/18/22 07:32 07/18/22 07:32 Labs: Lab Results 07/18/22 07/18/22 07/18/22 Range/Units 07:32 07:32 08:03 WBC 12.8 H (4.8-10.8) X10*3/uL RBC 4.84 (4.60-5.80) X10*6/uL Hgb 14.4 (14.0-18.0) g/dl Hct 41.5 L (42.0-52.0) % MCV 85.7 (80.0-98.0) fL MCH 29.8 (27.0-33.0) pg MCHC 34.7 (31.0-36.0) g/dl RDW 12.2 (11.0-16.0) % Plt Count 259 (160-400) X10*3/uL MPV 10.9 (9.4-12.4) fL Immature Gran % (Auto) 0.3 (0.0-0.4) % Neut % (Auto) 72.2 (45-73) % Lymph % (Auto) 15.8 L (20-40) % [place] % (Auto) 8.0 (2-11) % Eos % (Auto) 3.2 (0-4) % Baso % (Auto) 0.5 (0-2) % Lymph # (Auto) 2.0 (1.2-4.9) X10*3/uL [place] # (Auto) 1.0 (0.1-1.2) X10*3/uL Eos # (Auto) 0.4 (0.0-0.4) X10*3/uL Baso # (Auto) 0.1 (0.0-0.2) X10*3/uL Abs Immat Gran (auto) 0.04 H (0.00-0.03) X10*3/uL Absolute Neuts (auto) 9.3 H (2.0-8.3) x10*3/uL Absolute Nucleated RBC 0.000 (0.0-0.012) X10*3/uL Nucleated RBC % (auto) 0.0 (0.0-0.2) /100WBC Sodium 141 (135-145) mmol/L Potassium 4.6 (3.3-5.1) mmol/L Chloride 107 (96-108) mmol/L Carbon Dioxide 25 (22-29) mmol/L Anion Gap 14 (12-20) BUN 18 H (9-16) mg/dL Creatinine 0.94 (0.5-1.4) mg/dL Estim Creat Clear Calc 149.6 Estimated GFR > 60 Random Glucose 105 (60-115) mg/dL Calcium 9.5 (8.4-10.2) mg/dL Lipase 15 (8-78) U/L Urine Color Yellow Urine Appearance Clear Urine pH 6.5 (5.0-9.0) Ur Specific [place] 1.025 (1.005-1.025) Urine Protein Trace (Neg-Trace) mg/dL Urine Glucose (UA) Negative (Negative) mg/dL Urine Ketones Negative (Negative) mg/dL Urine Blood Negative (Negative) Urine Nitrite Negative (Negative) Ur Leukocyte Esterase Negative (Negative) Urine RBC 0-2 (0-2) /HPF Urine WBC 0-5 (0-5) /HPF Ur Squamous Epith Cells 0-2 (0-2) /HPF Urine Bacteria None Seen (None Seen) Hyaline Casts 0-2 (0-2) /LPF Radiology Impression Radiologist Impression: My interpretation is in agreement with radiology's impression of the imaging study. External Record Review External record reviewed: Outpatient record and Prior outpatient labs Discharge Plan Discharge Clinical Impression: Diverticulitis Patient Disposition: Home, Self-Care Instructions: Diverticulitis (ED), Diverticulitis Diet (ED) Additional Instructions: 1. Resume all home medications as prescribed. 2. Complete the entire course of antibiotics as ordered. Recommend [id number] Tylenol/ibuprofen as needed for pain control. 3. You have been given a referral for Gastroenterology, you should call the office today and set up an appointment for re-evaluation in 6 weeks. 4. Please follow-up with your primary care provider. Return to the ER for any worsening of your symptoms. Prescriptions: New amoxicillin-pot clavulanate 875-125 mg tablet 1 tab PO Q12H 10 Days Qty: 20 0RF No Action prednisone 20 mg tablet 60 mg PO DAILY 5 Days Qty: 15 0RF albuterol sulfate 90 mcg/actuation HFA aerosol inhaler 2 puff inhalation Q4-6H PRN (Reason: shortness of breath or wheezing) Qty: 8.5 0RF cyclobenzaprine 10 mg tablet 10 mg PO TID PRN (Reason: muscle spasm) Qty: 10 0RF lidocaine [Lidoderm] 5 % adhesive patch,medicated 1 patch topical DAILY Qty: 15 0RF Rx Instructions: leave on most painful area for up to 12 hrs ibuprofen 600 mg tablet 600 mg PO Q8H PRN (Reason: pain) Qty: 20 0RF prednisone 20 mg tablet 40 mg PO DAILY 5 Days Qty: 10 0RF benzonatate [Tessalon Perles] 100 mg capsule 100 mg PO TID PRN (Reason: cough) Qty: 14 0RF fluticasone propionate [Flonase Allergy Relief] 50 mcg/actuation spray,suspension 2 spray intranasal DAILY Qty: 16 0RF Rx Instructions: administer into each nostril albuterol sulfate 2.5 mg /3 mL (0.083 %) solution for nebulization 2.5 mg inhalation Q4-6H PRN (Reason: bronchospasm) Qty: 75 0RF prednisone 20 mg tablet 60 mg PO DAILY 4 Days Qty: 12 0RF albuterol sulfate 90 mcg/actuation HFA aerosol inhaler 2 puff inhalation QID PRN (Reason: shortness of breath or wheezing) Qty: 6.7 0RF cyclobenzaprine 10 mg tablet 10 mg PO TID Qty: 10 0RF naproxen [Naprosyn] 500 mg tablet 500 mg PO BID Qty: 20 0RF Referrals: Armin Del Valle [Physician] - (37-year-old male with acute diverticulitis, will treat with Augmentin, has a significant family history of early colon cancer and gets colonoscopies every 3 years, last colonoscopy was 3 years ago.) Stand Alone Forms: Work/School Release
[2022-07-18] MEDS: Acetaminophen 325 MG TABLET 975 MG PO (09:34)
[2022-07-18] MEDS: Amoxicillin/Potassium Clav 875 MG TABLET PO (09:34)
[2022-07-18] MEDS: Ibuprofen 400 MG TABLET PO (09:35)
[2022-07-18 09:37] VITALS: BP 140/88; PULSE 109; RESP 18; TEMP 36.7; O2SAT 96
== END 2022-07-18 09:52 | disposition home or self-care (01) ==
PROVIDERS: Emergency Provider Student in an Organized Health Care Education/Training Program
DX: K57.32 Diverticulitis of large intestine without perforation or abscess without bleeding (principal); K59.00 Constipation, unspecified; Z79.899 Other long term (current) drug therapy
CPT/HCPCS: 36415; 74176; 80048; 81001; 83690; 85025; 99284

== ENCOUNTER 2023-06-13 18:27 | Emergency (ER) | payer BC, SELFPAY ==
[2023-06-13 19:23] VITALS: BP 158/93; PULSE 112; RESP 22; TEMP 37.2; O2SAT 97; BMI 35.4
--- NOTE | 2023-06-13 21:22 | ED.URI ---
HPI - URI/Sore Throat General Chief Complaint: Dyspnea Stated Complaint: sob,body aches fever Time Seen by Provider: 06/13/23 21:02 Source: patient Mode of arrival: ambulatory Limitations: no limitations History of Present Illness HPI Narrative: 38 yo male with PMH of asthma has been sign for about a month at the start of May viral panel was negative urgent care started him on prednisone. He never fully got better. He acutely got worse today with body aches, not feeling well, headaches, chills and cough. MD elicited complaint: fever, cough and nasal congestion Pertinent past history: asthma Onset (ago): day(s) (1) Consistency: constant Severity: moderate Description of mucous: clear Able to tolerate fluids by mouth: Yes Exacerbating factors: swallowing and other (coughing) Relieving factors: nothing Associated symptoms: fever, chills, headache, rhinorrhea, sore throat, cough and shortness of breath Treatments prior to arrival: cold medicine and other Related Data Previous Rx's Medication Instructions Recorded albuterol sulfate 90 mcg/actuation 2 puff inhalation Q4-6H PRN 06/20/20 aerosol inhaler shortness of breath or wheezing #8.5 grams prednisone 20 mg tablet 60 mg (3 x 20 mg) PO DAILY 5 days 06/20/20 #15 tabs cyclobenzaprine 10 mg tablet 10 mg PO TID PRN muscle spasm #10 11/01/20 tabs ibuprofen 600 mg tablet 600 mg PO Q8H PRN pain #20 tabs 11/01/20 lidocaine 5 % topical patch 1 patch topical DAILY #15 ea 11/01/20 (Lidoderm) benzonatate 100 mg capsule 100 mg PO TID PRN cough #14 caps 11/23/20 (Tessalon Perles) fluticasone propionate 50 2 spray intranasal DAILY #16 grams 11/23/20 mcg/actuation nasal spray,suspension (Flonase Allergy Relief) prednisone 20 mg tablet 40 mg (2 x 20 mg) PO DAILY 5 days 11/23/20 #10 tabs albuterol sulfate 2.5 mg/3 mL 2.5 mg (3 mL) inhalation Q4-6H PRN 04/14/21 (0.083 %) solution for nebulization bronchospasm #75 mL albuterol sulfate 90 mcg/actuation 2 puff inhalation QID PRN 04/14/21 aerosol inhaler shortness of breath or wheezing #6.7 grams prednisone 20 mg tablet 60 mg (3 x 20 mg) PO DAILY 4 days 04/14/21 #12 tabs cyclobenzaprine 10 mg tablet 10 mg PO TID #10 tabs 10/31/21 naproxen 500 mg tablet (Naprosyn) 500 mg PO BID #20 tabs 10/31/21 amoxicillin 875 mg-potassium 1 tab PO Q12H 10 days #20 tabs 07/18/22 clavulanate 125 mg tablet albuterol sulfate 2.5 mg/3 mL 2.5 mg (3 mL) inhalation Q4-6H PRN 06/13/23 (0.083 %) solution for nebulization bronchospasm #75 mL albuterol sulfate 90 mcg/actuation 2 puff inhalation QID PRN 06/13/23 aerosol inhaler shortness of breath or wheezing #6.7 grams azithromycin 250 mg tablet 250 mg PO DAILY 4 days #4 tabs 06/13/23 fluticasone propionate 110 1 puff inhalation BID #12 grams 06/13/23 mcg/actuation HFA aerosol inhaler (Flovent HFA) oseltamivir 75 mg capsule (Tamiflu) 75 mg PO BID 5 days #9 caps 06/13/23 prednisone 20 mg tablet 60 mg (3 x 20 mg) PO DAILY 4 days 06/13/23 #12 tabs Allergies Allergy/AdvReac Type Severity Reaction Status Date / Time Cat/Feline Product Allergy Unknown UNKNOWN Uncoded 10/31/21 04:21 Derivatives Chocolate Allergy Unknown ANAPHYLAXIS Uncoded 10/31/21 04:21 Review of Systems Review of Systems: Constitutional : pos Fever, pos Chills ENT/Mouth : No Hoarseness, No sore throat, No Rhinorrhea Eyes: No Redness, No Discharge, No Vision Changes Cardiovascular : No Chest Pain, positive SOB, Respiratory : positive Cough, No Sputum, positive Wheezing, Gastrointestinal : No Nausea, No Vomiting, No Diarrhea, No abdominal Pain Genitourinary : No Dysuria, No Hematuria Musculoskeletal : No joint pain, pos Myalgias Skin : No rash Neuro : No Weakness, No Numbness, pos Headache Psych : No anxiety, depression All other systems reviewed and are negative PMFSH Past Medical History Source: old records reviewed Onset Date is defined in the Problem List Problems that require an onset date and time if occurred within 24 hrs of arrival to the ED Aortic Dissection and Rupture; Neurologic impairment; Cardiopulmonary Arrest; Endotracheal Intubation; Insertion or Replacement of Mechanical Circulatory Assist Device Medical History Eczema Asthma Social History Social History Patient Tobacco Use Status: Current everyday Tobacco user Physical Exam Vital Signs: Vital Signs: Last Vital Signs Temp 98.9 F 06/13/23 19:23 Pulse 112 H 06/13/23 19:23 Resp 22 H 06/13/23 19:23 BP 158/93 H 06/13/23 19:23 Pulse Ox 97 06/13/23 19:23 O2 Del Method Room Air 06/13/23 19:23 BMI result Body Mass Index 35.4 Appearance: Alert. Oriented X3. No acute distress. Eyes: Pupils equal, round and reactive to light. ENT: Pharynx normal. Neck: Normal inspection. Neck supple. CVS: Normal heart rate and rhythm. Pulses normal. Respiratory: No respiratory distress. Breath sounds wheezes exp RLL Abdomen: Soft and nontender. Skin: Skin warm and dry. Normal skin color. Normal skin turgor. Extremities: No lower extremity edema. No calf ttp Neuro: Oriented X 3. No motor deficit. No sensory deficit. Medications Administered Discontinued Medications Generic Name Dose Route Start Last Admin Trade Name Freq PRN Reason Stop Dose Admin Azithromycin 500 mg 06/13/23 21:14 06/13/23 21:18 Azithromycin 500 Mg Tablet PO 06/13/23 21:15 500 mg ONCE ONE Administration Oseltamivir Phosphate 75 mg 06/13/23 21:14 06/13/23 21:18 Oseltamivir Phosphate 75 Mg Capsule PO 06/13/23 21:15 75 mg ONCE ONE Administration Prednisone 60 mg 06/13/23 21:14 06/13/23 21:18 Prednisone 20 Mg Tablet PO 06/13/23 21:15 60 mg ONCE ONE Administration Medical Decision Making Medical Decision Making MDM Narrative: 38 yo male with PMH of asthma here with c/o viral like illness and acute change in recent 1 month of of URI symptoms likely untreated bronchitis in asthma at this time will obtain viral panel and CXR - he is flu A + start on steroids, INH, nebs, tamiflu is in window and given concerns for bronchitis and inflammation start on azithromycin. Differential Diagnosis Differential Diagnoses: The differential diagnosis associated with the presentation includes viral syndrome, bronchitis Admission/Observation Consideration of admission/observation: Escalation of care including admission/observation considered no hypoxia or resp distress stable for outaptient management Lab Data MDM Lab Attestation statement: I reviewed the patient's lab results. Labs: Lab Results 06/13/23 06/13/23 Range/Units 19:53 20:57 Influenza Type A (PCR) POSITIVE A (Negative) Influenza Type B (PCR) NEGATIVE (Negative) RSV RNA Qual (PCR) NEGATIVE (Negative) SARS-CoV-2 RNA (RT-PCR) NEGATIVE (Negative) S. pyogenes GrpA GHISLAINE Negative (Negative) Independent Interpretation I performed an independent interpretation of an: Plain X-Ray Radiology Impression Discussion of test interpretation with radiology: I have reviewed the radiologist's reading. Prescription Management I considered prescription management with: Antiviral, Antibiotic and Other Discharge Plan Discharge Clinical Impression: Influenza A, Bronchitis Asthma with exacerbation Qualifiers: Asthma severity: moderate Asthma persistence: persistent Qualified Code(s): J45.41 - Moderate persistent asthma with (acute) exacerbation Patient Disposition: Home, Self-Care Instructions: Asthma (ED), Influenza (ED), Acute Bronchitis (ED) Additional Instructions: complete all medications return for worsening symptoms or concerns. chest pain, trouble breathing, oxygen sats below 92% or any other concerns. 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 Prescriptions: New prednisone 20 mg tablet 60 mg PO DAILY 4 Days Qty: 12 0RF azithromycin 250 mg tablet 250 mg PO DAILY 4 Days Qty: 4 0RF Rx Instructions: start on day 2 of therapy albuterol sulfate 90 mcg/actuation HFA aerosol inhaler 2 puff inhalation QID PRN (Reason: shortness of breath or wheezing) Qty: 6.7 0RF albuterol sulfate 2.5 mg /3 mL (0.083 %) solution for nebulization 2.5 mg inhalation Q4-6H PRN (Reason: bronchospasm) Qty: 75 0RF fluticasone propionate [Flovent HFA] 110 mcg/actuation HFA aerosol inhaler 1 puff inhalation BID Qty: 12 0RF Rx Instructions: rinse mouth after use oseltamivir [Tamiflu] 75 mg capsule 75 mg PO BID 5 Days Qty: 9 0RF No Action prednisone 20 mg tablet 60 mg PO DAILY 5 Days Qty: 15 0RF albuterol sulfate 90 mcg/actuation HFA aerosol inhaler 2 puff inhalation Q4-6H PRN (Reason: shortness of breath or wheezing) Qty: 8.5 0RF cyclobenzaprine 10 mg tablet 10 mg PO TID PRN (Reason: muscle spasm) Qty: 10 0RF lidocaine [Lidoderm] 5 % adhesive patch,medicated 1 patch topical DAILY Qty: 15 0RF Rx Instructions: leave on most painful area for up to 12 hrs ibuprofen 600 mg tablet 600 mg PO Q8H PRN (Reason: pain) Qty: 20 0RF prednisone 20 mg tablet 40 mg PO DAILY 5 Days Qty: 10 0RF benzonatate [Tessalon Perles] 100 mg capsule 100 mg PO TID PRN (Reason: cough) Qty: 14 0RF fluticasone propionate [Flonase Allergy Relief] 50 mcg/actuation spray,suspension 2 spray intranasal DAILY Qty: 16 0RF Rx Instructions: administer into each nostril amoxicillin-pot clavulanate 875-125 mg tablet 1 tab PO Q12H 10 Days Qty: 20 0RF albuterol sulfate 2.5 mg /3 mL (0.083 %) solution for nebulization 2.5 mg inhalation Q4-6H PRN (Reason: bronchospasm) Qty: 75 0RF prednisone 20 mg tablet 60 mg PO DAILY 4 Days Qty: 12 0RF albuterol sulfate 90 mcg/actuation HFA aerosol inhaler 2 puff inhalation QID PRN (Reason: shortness of breath or wheezing) Qty: 6.7 0RF cyclobenzaprine 10 mg tablet 10 mg PO TID Qty: 10 0RF naproxen [Naprosyn] 500 mg tablet 500 mg PO BID Qty: 20 0RF
[2023-06-13 21:30] VITALS: PULSE 120; RESP 16; O2SAT 97
== END 2023-06-13 22:04 | disposition home or self-care (01) ==
PROVIDERS: Emergency Provider Emergency Medicine
DX: J10.1 Influenza due to other identified influenza virus with other respiratory manifestations (principal); Z11.52 Encounter for screening for COVID-19; R05.9 Cough, unspecified
CPT/HCPCS: 0241U; 36415; 71046; 86308; 87651; 94640; 99283; 99284

== ENCOUNTER 2024-02-10 03:40 | Emergency (ER) | payer BC, SELFPAY ==
[2024-02-10 03:43] VITALS: BP 128/72; PULSE 85; RESP 22; TEMP 36.2; O2SAT 96; BMI 32.2
[2024-02-10 03:57] VITALS: BP 127/75; PULSE 85; RESP 19; TEMP 36.4; O2SAT 98
[2024-02-10] MEDS: predniSONE 20 MG TABLET 60 MG PO (04:02)
[2024-02-10] MEDS: Albuterol/Iprat 2.5/0.5MG 3 ML AMPUL.NEB INHALE (04:05)
[2024-02-10 04:09] VITALS: PULSE 86; RESP 18; O2SAT 98
[2024-02-10 05:39] VITALS: BP 119/79; PULSE 88; RESP 17; O2SAT 99
--- NOTE | 2024-02-10 05:49 | ED_ITS ---
HPI - Asthma General Chief Complaint: Asthma Stated Complaint: trouble breathing/asthma Time Seen by Provider: 02/10/24 03:46 Source: patient Mode of arrival: ambulatory Limitations: no limitations History of Present Illness ED Provider: Dr. 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 Patient had been on recent prednisone after COVID. States that he should not be working down there MD complaint: asthma attack and shortness of breath Onset (ago): hour(s) Severity: mild Associated symptoms: dry cough Related Data Previous Rx's ?Medication ?Instructions ?Recorded albuterol sulfate 90 mcg/actuation 2 puff inhalation Q4-6H PRN 06/20/20 aerosol inhaler shortness of breath or wheezing #8.5 grams prednisone 20 mg tablet 60 mg (3 x 20 mg) PO DAILY 5 days 06/20/20 #15 tabs cyclobenzaprine 10 mg tablet 10 mg PO TID PRN muscle spasm #10 11/01/20 tabs ibuprofen 600 mg tablet 600 mg PO Q8H PRN pain #20 tabs 11/01/20 lidocaine 5 % topical patch 1 patch topical DAILY #15 ea 11/01/20 (Lidoderm) benzonatate 100 mg capsule 100 mg PO TID PRN cough #14 caps 11/23/20 (Tessalon Perles) fluticasone propionate 50 2 spray intranasal DAILY #16 grams 11/23/20 mcg/actuation nasal spray,suspension (Flonase Allergy Relief) prednisone 20 mg tablet 40 mg (2 x 20 mg) PO DAILY 5 days 11/23/20 #10 tabs albuterol sulfate 2.5 mg/3 mL 2.5 mg (3 mL) inhalation Q4-6H PRN 04/14/21 (0.083 %) solution for nebulization bronchospasm #75 mL albuterol sulfate 90 mcg/actuation 2 puff inhalation QID PRN 04/14/21 aerosol inhaler shortness of breath or wheezing #6.7 grams prednisone 20 mg tablet 60 mg (3 x 20 mg) PO DAILY 4 days 04/14/21 #12 tabs cyclobenzaprine 10 mg tablet 10 mg PO TID #10 tabs 10/31/21 naproxen 500 mg tablet (Naprosyn) 500 mg PO BID #20 tabs 10/31/21 amoxicillin 875 mg-potassium 1 tab PO Q12H 10 days #20 tabs 07/18/22 clavulanate 125 mg tablet albuterol sulfate 2.5 mg/3 mL 2.5 mg (3 mL) inhalation Q4-6H PRN 06/13/23 (0.083 %) solution for nebulization bronchospasm #75 mL albuterol sulfate 90 mcg/actuation 2 puff inhalation QID PRN 06/13/23 aerosol inhaler shortness of breath or wheezing #6.7 grams azithromycin 250 mg tablet 250 mg PO DAILY 4 days #4 tabs 06/13/23 fluticasone propionate 110 1 puff inhalation BID #12 grams 06/13/23 mcg/actuation HFA aerosol inhaler (Flovent HFA) oseltamivir 75 mg capsule (Tamiflu) 75 mg PO BID 5 days #9 caps 06/13/23 prednisone 20 mg tablet 60 mg (3 x 20 mg) PO DAILY 4 days 06/13/23 #12 tabs prednisone 20 mg tablet 60 mg (3 x 20 mg) PO DAILY #12 tabs 02/10/24 Allergies Allergy/AdvReac Type Severity Reaction Status Date / Time Cat/Feline Product Allergy Unknown UNKNOWN Uncoded 02/10/24 03:48 Derivatives Chocolate Allergy Unknown ANAPHYLAXIS Uncoded 02/10/24 03:48 Review of Systems Review of Systems: Yes all other systems are reviewed and are negative Neurologic: Denies Sensory deficit (Neuro) [facility] Past Medical History Medical History Eczema Asthma Social History Social History Patient Tobacco Use Status: Current everyday Tobacco user Smoked in Last 30 Days: No Use of substances other than those prescribed or required for medical reasons: No Advance Directives: No Advance Directives Information Provided: Yes Do you have a plan to hurt others: No Plan Physical Exam Vital Signs: Vital Signs: Last Vital Signs Temp 97.6 F 02/10/24 03:57 Pulse 88 02/10/24 05:39 Resp 17 02/10/24 05:39 BP 119/79 02/10/24 05:39 Pulse Ox 99 02/10/24 05:39 O2 Del Method Room Air 02/10/24 05:39 BMI result Body Mass Index 32.2 Const: Other: flat affect General: healthy appearing Nutritional Appearance: average body habitus Orientation/consciousness: oriented to person and patient oriented x3 Limitations: no limitations HEENT: Head: Yes normal to inspection Ears: external ears normal General nose exam: Normal external nose present Mouth: Normal oral and palatal mucosa present and oropharynx normal Throat: Yes posterior oropharynx normal Eyes: General: appearance normal, both eyes and all related structures Neck: Other: supple Neck: Yes normal visual inspection Chest: Chest palpation & inspection: normal inspection of the chest Resp: Other: diffuse wheezing Cardio: Jugular venous distension: no JVD Rate: regular rate Rhythm: regular rhythm Heart sounds: S1 normal heart sound present and S2 normal heart sound present GI: Inspection: Yes normal to inspection Palpation (GI): Soft to palpation, nontender and No hepatosplenomegaly present Auscultation: normal bowel sounds : General: Yes no CVA tenderness Back/Spine/Pelvis: Back: no CVA tenderness Skin: General skin exam: no rashes or lesions noted Neuro: General: oriented to person and patient oriented x3 Cranial nerves: Yes CN's II-XII intact bilaterally Motor exam (neuro): 5/5 motor strength present throughout Sensory Exam: No Sensory deficit (Neuro) Extrem: General: Yes normal to inspection Psych: Appearance: grossly normal Course Reevaluation(s) Reevaluation #1: patient improved will dc on prednisone Time: 05:53 Medications Administered Discontinued Medications Generic Name Dose Route Start Last Admin Trade Name Freq PRN Reason Stop Dose Admin Albuterol/Ipratropium 3 ml 02/10/24 03:56 02/10/24 04:05 Albuterol/Iprat 2.5/0.5mg 3 Ml Ampul.Neb INHALE 02/10/24 03:57 3 ml ONCE ONE Administration Prednisone 60 mg 02/10/24 03:56 02/10/24 04:02 Prednisone 20 Mg Tablet PO 02/10/24 03:57 60 mg ONCE ONE Administration Medical Decision Making Differential Diagnosis Differential Diagnoses: The differential diagnosis associated with the presentation includes (asthma exacerbation, URI, pneumonia) Admission/Observation Consideration of admission/observation: Escalation of care including admission/observation considered (upon arrival admission was considered) Tests considered The following testing was considered but not selected: CXR considered but patient with good oxygen no focal rales Prescription Management I considered prescription management with: Antibiotic (no evidence of bacterial infection) Chronic Conditions Patient?s care impacted by: Other (Asthma) Discharge Plan Discharge Clinical Impression: Asthma with acute exacerbation Patient Disposition: Home, Self-Care Instructions: Asthma (ED) Prescriptions: New prednisone 20 mg tablet 60 mg PO DAILY Qty: 12 0RF No Action prednisone 20 mg tablet 60 mg PO DAILY 5 Days Qty: 15 0RF albuterol sulfate 90 mcg/actuation HFA aerosol inhaler 2 puff inhalation Q4-6H PRN (Reason: shortness of breath or wheezing) Qty: 8.5 0RF cyclobenzaprine 10 mg tablet 10 mg PO TID PRN (Reason: muscle spasm) Qty: 10 0RF lidocaine [Lidoderm] 5 % adhesive patch,medicated 1 patch topical DAILY Qty: 15 0RF Rx Instructions: leave on most painful area for up to 12 hrs ibuprofen 600 mg tablet 600 mg PO Q8H PRN (Reason: pain) Qty: 20 0RF prednisone 20 mg tablet 40 mg PO DAILY 5 Days Qty: 10 0RF benzonatate [Tessalon Perles] 100 mg capsule 100 mg PO TID PRN (Reason: cough) Qty: 14 0RF fluticasone propionate [Flonase Allergy Relief] 50 mcg/actuation spray,suspension 2 spray intranasal DAILY Qty: 16 0RF Rx Instructions: administer into each nostril amoxicillin-pot clavulanate 875-125 mg tablet 1 tab PO Q12H 10 Days Qty: 20 0RF albuterol sulfate 2.5 mg /3 mL (0.083 %) solution for nebulization 2.5 mg inhalation Q4-6H PRN (Reason: bronchospasm) Qty: 75 0RF prednisone 20 mg tablet 60 mg PO DAILY 4 Days Qty: 12 0RF albuterol sulfate 90 mcg/actuation HFA aerosol inhaler 2 puff inhalation QID PRN (Reason: shortness of breath or wheezing) Qty: 6.7 0RF cyclobenzaprine 10 mg tablet 10 mg PO TID Qty: 10 0RF naproxen [Naprosyn] 500 mg tablet 500 mg PO BID Qty: 20 0RF prednisone 20 mg tablet 60 mg PO DAILY 4 Days Qty: 12 0RF azithromycin 250 mg tablet 250 mg PO DAILY 4 Days Qty: 4 0RF Rx Instructions: start on day 2 of therapy albuterol sulfate 90 mcg/actuation HFA aerosol inhaler 2 puff inhalation QID PRN (Reason: shortness of breath or wheezing) Qty: 6.7 0RF albuterol sulfate 2.5 mg /3 mL (0.083 %) solution for nebulization 2.5 mg inhalation Q4-6H PRN (Reason: bronchospasm) Qty: 75 0RF fluticasone propionate [Flovent HFA] 110 mcg/actuation HFA aerosol inhaler 1 puff inhalation BID Qty: 12 0RF Rx Instructions: rinse mouth after use oseltamivir [Tamiflu] 75 mg capsule 75 mg PO BID 5 Days Qty: 9 0RF Referrals: Physician,None [Primary Care Provider] - 5 days Print Language: Macanese
[2024-02-10 06:01] VITALS: BP 127/76; PULSE 77; RESP 17; TEMP 36.4; O2SAT 96
== END 2024-02-10 06:05 | disposition home or self-care (01) ==
PROVIDERS: Emergency Provider Emergency Medicine
DX: J45.901 Unspecified asthma with (acute) exacerbation (principal)
CPT/HCPCS: 94640; 99284; 99285

== ENCOUNTER 2025-02-10 16:22 | Emergency (ER) | payer BC, SELFPAY ==
[2025-02-10 16:38] VITALS: BP 138/60; PULSE 108; RESP 22; TEMP 36.4; O2SAT 94; BMI 32.7
--- NOTE | 2025-02-10 16:38 | ED_ITS ---
HPI - General Adult General Chief complaint: Asthma Stated complaint: difficulty breathing Time Seen by Provider: 02/10/25 16:56 Source: patient Mode of arrival: ambulatory Limitations: no limitations History of Present Illness ED Provider: Dr. Burns [facility] narrative: This is a 39-year-old male history of asthma and allergic reaction to NSAIDs in the past anaphylaxis presented hospital today for evaluation of asthma exacerbation. Patient stated he had a headache. He stopped by a gas station and picked up Excedrin. However he was unaware there is NSAIDs therefore he began to have some shortness of breath. The patient is currently receiving breathing treatment, IV Solu-Medrol was given, IV Pepcid and IV Benadryl was given prior to my arrival to the patient's room. Patient's lung does sounds improve. Related Data Previous Rx's ?Medication ?Instructions ?Recorded albuterol sulfate 90 mcg/actuation 2 puff inhalation Q 4-6H PRN 06/20/20 aerosol inhaler shortness of breath or wheez ing #8.5 grams prednisone 20 mg tablet 60 mg (3 x 20 mg) PO DAILY 5 days 06/20/20 #15 tabs cyclobenzaprine 10 mg tablet 10 mg PO TID PRN muscle s pasm #10 11/01/20 tabs ibuprofen 600 mg tablet 600 mg PO Q8H PRN pain #20 t abs 11/01/20 lidocaine 5 % topical patch 1 patch topical DAILY #15 ea 11/01/20 (Lidoderm) benzonatate 100 mg capsule 100 mg PO TID PRN cough #14 caps 11/23/20 (Tessalon Perles) fluticasone propionate 50 2 spray intranasal DAILY #16 grams 11/23/20 mcg/actuation nasal spray,suspension (Flonase Allergy Relief) prednisone 20 mg tablet 40 mg (2 x 20 mg) PO DAILY 5 days 11/23/20 #10 tabs albuterol sulfate 2.5 mg/3 mL 2.5 mg (3 mL) inhalation Q4-6H PRN 04/14/21 (0.083 %) solution for nebulization bronchospasm #75 m L albuterol sulfate 90 mcg/actuation 2 puff inhalation Q ID PRN 04/14/21 aerosol inhaler shortness of breath or wheez ing #6.7 grams prednisone 20 mg tablet 60 mg (3 x 20 mg) PO DAILY 4 days 04/14/21 #12 tabs cyclobenzaprine 10 mg tablet 10 mg PO TID #10 tabs naproxen 500 mg tablet (Naprosyn) 500 mg PO BID #20 ta bs 10/31/21 amoxicillin 875 mg-potassium 1 tab PO Q12H 10 days #20 tabs 07/18/22 clavulanate 125 mg tablet albuterol sulfate 2.5 mg/3 mL 2.5 mg (3 mL) inhalation Q4-6H PRN 06/13/23 (0.083 %) solution for nebulization bronchospasm #75 m L albuterol sulfate 90 mcg/actuation 2 puff inhalation Q ID PRN 06/13/23 aerosol inhaler shortness of breath or wheez ing #6.7 grams azithromycin 250 mg tablet 250 mg PO DAILY 4 days #4 t abs 06/13/23 fluticasone propionate 110 1 puff inhalation BID #12 g anupama 06/13/23 mcg/actuation HFA aerosol inhaler (Flovent HFA) oseltamivir 75 mg capsule (Tamiflu) 75 mg PO BID 5 day s #9 caps 06/13/23 prednisone 20 mg tablet 60 mg (3 x 20 mg) PO DAILY 4 days 06/13/23 #12 tabs prednisone 20 mg tablet 60 mg (3 x 20 mg) PO DAILY # 12 tabs 02/10/24 prednisone 20 mg tablet 40 mg (2 x 20 mg) PO DAILY 7 days 02/10/25 #14 tabs Allergies Allergy/AdvReac Type Severity Reaction Status Date / Time aspirin (ASA) Allergy Difficulty Verified 02/10/25 20:02 Breathing NSAIDS (Non-Steroidal Allergy Difficulty Verified 02/10/25 16:42 Anti-Inflamma Breathing Cat/Feline Product Allergy Unknown UNKNOWN Uncoded 02/10/25 16:42 Derivatives Chocolate Allergy Unknown ANAPHYLAXIS Uncoded 02/10/25 16:42 Review of Systems Review of Systems: Pertinent review of systems as mentioned in HPI. All other system otherwise negative. [facility] Past Medical History [facility] Narrative: Medical history as mentioned in HPI Medical History Eczema Asthma Social History Social History Patient Tobacco Use Status: Current everyday Tobacco user Advance Directives: No Advance Directives Information Provided: No Physical Exam ED Exam Exam: General: Pleasant, no distress, interacting appropriately Head: Normacephalic, atraumatic ENT: oral mucosa moist, neck supple, no tracheal deviation Cardiovascular: regular rate, regular rhythm, no murmurs, rubbing, gallops Respiratory: Diminished lung sounds bilaterally, expiratory wheeze appreciated on exam Neurological: Awake and alert, no facial droop noted Skin: Warm and dry Psychiatric: Appropriate mood and thoughts Vital Signs: Vital Signs - 24 hr 02/10/25 16:38 02/10/25 17:02 02/10/25 18:27 Temperature 97.5 F 98.2 F Pulse Rate 108 H 108 H 95 Respiratory Rate 22 H 22 H 16 Blood Pressure 138/60 106/58 L Pulse Oximetry 94 95 Oxygen Delivery Method Room Air Room Air BMI result Body Mass Index 32.7 Course Course Course Narrative: This is a rapid medical exam performed by Dayton Shah NP: Additional HPI, ROS, PE not included below will be deferred to primary provider. Patient is a 39-year-old male with history of asthma presenting to the ED with complaint of shortness of breath after taking Excedrin on his way home from work. Did not realize he shouldn't have taken this with his asthma due to the ASA. Audible wheezing in triage, increased WOB. No angioedema. Plan: element setter notified, ed bronch protocol ordered, benadryl, solu-medrol Medications Administered Discontinued Medications Generic Name Dose Route Start Last Admin Trade Name Freq PRN Reason Stop Dose Admin Albuterol Sulfate 5 mg/ 0 mg 02/10/25 16:57 02/10/25 17:00 Albuterol/Ipratropium 3 ml INHALE 02/10/25 16:58 1 each ONCE ONE Administration Diphenhydramine HCl 25 mg 02/10/25 16:42 02/10/25 17:07 Diphenhydramine Hcl 50 Mg/Ml Vial IVPUSH 02/10/25 16:43 25 mg ONCE ONE Administration Famotidine 20 mg 02/10/25 16:42 02/10/25 17:06 Famotidine/Pf 20 Mg/2 Ml Vial IVPUSH 02/10/25 16:43 20 mg ONCE ONE Administration Methylprednisolone Sodium Succinate 60 mg 02/10/25 16:42 02/10/25 17:07 Methylprednisolone Sod Succ 125 Mg/2 Ml Vial IVPUSH 02/10/25 16:43 60 mg ONCE ONE Administration Medical Decision Making Medical Decision Making [facility] Narrative: 39-year-old male presented hospital today for evaluation of asthma exacerbation. Patient is currently retrieving treatment at this time. We will re-evaluate the patient after treatment. He is receiving IV Solu-Medrol, Benadryl, IV Pepcid. I do not think patient is having anaphylaxis at this time. Patient has received albuterol treatment. On reassessment patient is feeling better. Able to ambulate without any issues at this time. We will plan to discharge patient with a course of prednisone to take at home. Patient is agreeable to this plan. Patient will be discharged Differential Diagnosis Differential Diagnoses: The differential diagnosis associated with the presentation includes Anaphylaxis, asthma exacerbation Critical Care Time Critical Care Time Critical Care Time: Yes Total Critical Care Time: 40 Attestation: Time is exclusive of separately billable procedures. Time includes: direct patient care, patient reassessment, coordination of patient care, interpretation of data (laboratory data, pulse oximetry, arterial blood gases and chest xrays), review of patient's medical records, medical consultation and documentation of patient care. Procedures excluded from critical care time: central intravenous line placement and electrocardiography. Discharge Plan Discharge Clinical Impression: Asthma with acute exacerbation Qualifiers: Asthma severity: moderate Asthma persistence: unspecified Qualified Code(s): J45.901 - Unspecified asthma with (acute) exacerbation Patient Disposition: Home, Self-Care Prescriptions: New prednisone 20 mg tablet 40 mg PO DAILY 7 Days Qty: 14 0RF No Action prednisone 20 mg tablet 60 mg PO DAILY 5 Days Qty: 15 0RF albuterol sulfate 90 mcg/actuation HFA aerosol inhaler 2 puff inhalation Q4-6H PRN (Reason: shortness of breath or wheezing) Qty: 8.5 0RF cyclobenzaprine 10 mg tablet 10 mg PO TID PRN (Reason: muscle spasm) Qty: 10 0RF lidocaine [Lidoderm] 5 % adhesive patch,medicated 1 patch topical DAILY Qty: 15 0RF Rx Instructions: leave on most painful area for up to 12 hrs ibuprofen 600 mg tablet 600 mg PO Q8H PRN (Reason: pain) Qty: 20 0RF prednisone 20 mg tablet 40 mg PO DAILY 5 Days Qty: 10 0RF benzonatate [Tessalon Perles] 100 mg capsule 100 mg PO TID PRN (Reason: cough) Qty: 14 0RF fluticasone propionate [Flonase Allergy Relief] 50 mcg/actuation spray,suspension 2 spray intranasal DAILY Qty: 16 0RF Rx Instructions: administer into each nostril amoxicillin-pot clavulanate 875-125 mg tablet 1 tab PO Q12H 10 Days Qty: 20 0RF albuterol sulfate 2.5 mg /3 mL (0.083 %) solution for nebulization 2.5 mg inhalation Q4-6H PRN (Reason: bronchospasm) Qty: 75 0RF prednisone 20 mg tablet 60 mg PO DAILY 4 Days Qty: 12 0RF albuterol sulfate 90 mcg/actuation HFA aerosol inhaler 2 puff inhalation QID PRN (Reason: shortness of breath or wheezing) Qty: 6.7 0RF cyclobenzaprine 10 mg tablet 10 mg PO TID Qty: 10 0RF naproxen [Naprosyn] 500 mg tablet 500 mg PO BID Qty: 20 0RF prednisone 20 mg tablet 60 mg PO DAILY Qty: 12 0RF prednisone 20 mg tablet 60 mg PO DAILY 4 Days Qty: 12 0RF azithromycin 250 mg tablet 250 mg PO DAILY 4 Days Qty: 4 0RF Rx Instructions: start on day 2 of therapy albuterol sulfate 90 mcg/actuation HFA aerosol inhaler 2 puff inhalation QID PRN (Reason: shortness of breath or wheezing) Qty: 6.7 0RF albuterol sulfate 2.5 mg /3 mL (0.083 %) solution for nebulization 2.5 mg inhalation Q4-6H PRN (Reason: bronchospasm) Qty: 75 0RF fluticasone propionate [Flovent HFA] 110 mcg/actuation HFA aerosol inhaler 1 puff inhalation BID Qty: 12 0RF Rx Instructions: rinse mouth after use oseltamivir [Tamiflu] 75 mg capsule 75 mg PO BID 5 Days Qty: 9 0RF Interventions: ED Discharge Assessment Last Done: 02/10/25 20:01 Print Language: Croatian
[2025-02-10] MEDS: Albuterol Sulfate 5 MG, Albuterol/Iprat 2.5/0.5MG 3 ML 3 ML INHALE (17:00)
[2025-02-10 17:02] VITALS: PULSE 108; RESP 22; O2SAT 93
--- OUTSIDE RECORDS SUMMARY | 2025-02-10 17:22 | XMS_ITS | Clinical Summary ---
Author Organization [facility] [address] [place] [address] [place] [id number] Phone Care Team Providers Care Dramatic Critic Name Role Phone Alfredo Nur MD Primary Care Provider [phone] Allergies Active Allergy Reactions Criticality Noted Date Comments Cat Hair Standardized Allergenic Extract Wheezing 12/13/2014 Chocolate 05/27/2024 Mushroom 05/27/2024 Medications budesonide-form oteroL (SYMBICORT) 80-4.5 mcg/actuation inhaler 4 03/25/20 25 Active fluticasone propion-salmete roL (ADVAIR HFA) 115-21 mcg/actuation inhaler Inhale 2 Puffs into the lungs 2 times daily. 3 inhalers & 3 refills 4 Active albuterol HFA (PROAIR HFA ; PROVENTIL HFA ; VENTOLIN HFA) 90 mcg/actuation inhaler Inhale 2 Puffs into the lungs every 6 hours as needed for Cough, Wheezing or Shortness of Breath. 4 Active bisacodyL (DULCOLAX) 5 mg EC tablet Take 2 tabs by mouth right before beginning bowel prep. Follow instructions given by office for timing. 4 Active albuterol 2.5 mg /3 mL (0.083 %) nebulizer solution USE 1 VIAL VIA NEBULIZER EVERY 6 HOURS NEEDED FOR WHEEZING OR SHORTNESS OF BREATH 4 Active budesonide-form oteroL (SYMBICORT) 160-4.5 mcg/actuation inhalerIndicati ons:Moderate persistent asthma, unspecified whether complicated Inhale 2 puffs by mouth 2 (two) times a day. Rinse mouth with water after use to reduce aftertaste and incidence of candidiasis. Do not swallow. 3 each 3 5 07/20/19 26 Active albuterol HFA (ProAir HFA) 90 mcg/actuation inhalerIndicati ons:Moderate persistent asthma, unspecified whether complicated Inhale 2 puffs by mouth every 6 (six) hours if needed for wheezing. 3 each 3 5 07/20/19 26 Active budesonide-form oteroL (Breyna) 160-4.5 mcg/actuation inhalerIndicati ons:Moderate persistent asthma, unspecified whether complicated Inhale 2 puffs by mouth 2 (two) times a day. Rinse mouth with water after use to reduce aftertaste and incidence of candidiasis. Do not swallow. 3 each 3 5 11/24/19 26 Active albuterol HFA (Ventolin HFA) 90 mcg/actuation inhalerIndicati ons:Moderate persistent asthma, unspecified whether complicated Inhale 2 puffs by mouth every 6 (six) hours if needed for wheezing. 3 each 3 5 11/24/19 26 Active Active Problems Problem Noted Date Diagnosed Date Obstructive sleep apnea 12/02/2021 Overview (04/12/2024): [facility] Home sleep test 11/21/2021. Weight 275; BMI 37. AHI 10. Average oxygen saturation 94% with oxygen jacinta 80%. Obstructive sleep apnea-mild with mostly hypopneas and obstructive apneas without nocturnal hypoxemia based on 2021 home sleep test. Dyslipidemia 09/20/2018 Eczema 02/07/2015 Asthma 12/13/2014 Seasonal allergies 12/13/2014 Encounters Date Type Department Care Team Description 11/23/2024 2:00 PM EDT Office Visit Pul[address] [id number] Mary Vázquez MD Moderate persistent asthma, unspecified whether complicated (Primary Dx); SHILOH (obstructive sleep apnea) from Last 3 Months Immunizations Name Administration Dates Next Due DTP 01/29/1993, 1,01/27/1989,1988,1987 DTaP (Infanrix) 6wks to less than 7yo ,08/11/1990,10/11/1988,1988 [id number] (Pentacel) 2mo to less than 5yo 01/11/1989 Hepatitis B Pediatric (Enger ix B; Recombivax HB) to less than 20 yo 07/24/2000,02/07/2000,08/20/1999 Hib (HbOC) 01/27/1989 IPV Inactivated polio (Ipol) 6wks and older 01/11/1993,08/11/1990,10/11/1988,1988 Influenza trivalent, 0.5mL, preservative free (Fluarix; FluLaval; Fluzone) ages 6mo and older (Afluria) 3 years and older 03/30/2020,05/23/2016,04/07/2012 Influenza trivalent, with preservative (Fluzone; Afluria) 6mo and older 04/12/2002,04/20/2001 MMR, measles mumps and rubel la Live (Priorix; M-M-R II) 12mo and older 02/07/2000,08/28/1988,08/11/1988 OPV 01/29/1993, 1,01/27/1989,1988,1987 PPD Test 04/09/2012 Pneumococcal conjugate 13 va lent (Prevnar 13, PCV13) 2mo and older 05/23/2016 Td Tetanus diptheria (Tdvax) 7yo and older 04/22/2012,02/07/2000 Tdap Tetanus diptheria acell ular pertussis (Boostrix; Adacel) 7yo and older 03/29/2018 Surgical History Surgery Date Site/Laterality Comments TONSILLECTOMY PROCEDURE: HISTORICAL TONSILLECTOMY Medical History Medical History Date Comments Asthma DX:Asthma Eczema DX:Eczema Seasonal allergies DX:Seasonal a llergies Family history of colon cancer D X:Family history of colon cancer Dyslipidemia DX:Dyslipidemia Tobacco abuse DX:Tobacco abuse Neuroendocrine carcinoma of colon (CMS/HCC V24, 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); COMMENT: benign History of colonoscopy 07/2019 DX:Histor y of colonoscopy; COMMENT: repeat in 3 yrs History of colonoscopy 07/2019 DX:Histor y of colonoscopy; COMMENT: repeat in 3 yrs Family History Medical History Relation Name Comments Colon cancer Maternal Grandfather around 50 Colon cancer Mother Colon cancer Paternal Grandfather Heart attack Paternal Grandmother Colon cancer Uncle Relation Name Status Comments Maternal Grandfather Mother Paternal Grandfather Paternal Grandmother Uncle Social History Tobacco Use Types Packs/Day Years Used Date Smoking Tobacco: Former Cigarettes Q uit: 09/21/2019 Passive Smoke Exposure: Past Smokeless Tobacco: Never Tobacco Cessation:Counseling Given: Not Answered Alcohol Use Standard Drinks/Week Comments Yes 0 (1 standard drink = 0.6 oz pur e alcohol) Sex and Gender Information Value Date Recorded Sex Assigned at Not on file Legal Sex Male 12:55 PM EST Gender Identity Not on file Sexual Orientation Not on file Obstetrics History Last Filed Vital Signs Vital Sign Reading Time Taken Comments Blood Pressure 121/72 11/23/2024 2:09 PM EDT Pulse 89 11/23/2024 2:09 PM EDT Temperature 35.8 C (96.4 F) 07/20/2024 2:23 PM EST Respiratory Rate 15 11/23/2024 2:09 PM EDT Oxygen Saturation 99% 11/23/2024 2:09 PM EDT Inhaled Oxygen Concentration - - Weight 108 kg (237 lb) 11/23/2024 2:09 PM EDT Height 182.9 cm (6') 11/23/2024 2:09 PM EDT Body Mass Index 32.14 11/23/2024 2:09 PM EDT Plan of Treatment Upcoming Encounters Date Type Department Care Team (Late st Contact Info) Description 05/25/2025 2:45 PM EST Office Visit Pulmonolgy - [facility] [address] [facility] [address] [place] [phone] Mary Vázquez MD [address] [place] [id number] Health Maintenance Due Date Last Done Comments Pneumococcal Vaccine: Pediatrics (0 to 5 Years) and At-Risk Patients (6 to 49 Years) (2 of 2 - PPSV23) 07/18/2016 05/23/2016 HIV Screening 05/17/2022 Hepatitis C Screening 05/17/2022 Social Influencers of Health Screening 05/17/2022 Depression Screening 06/08/2024 COVID-19 Vaccine ( season) 2025 09/12/2021, 10/25/2020, 10/04/2020 Influenza Vaccine (#1) 2025 , 05/23/2016, 04/07/2012, Additional history exists DTaP,Tdap,and Td Vaccines (9 - Td or Tdap) 03/29/2028 03/29/2018, 04/22/2012, 02/07/2000, Additional history exists Cholesterol Screening (Lipid Panel) 05/27/2029 05/27/2024, 10/03/2021 HIB Vaccines Completed 01/27/1989, 01/11/1989 IPV Vaccines Completed 01/29/1993, 0811/1992, 08/18/1990, Additional history exists MMR Vaccines Completed 02/07/2000, 08/07, 08/11/1988 Hepatitis B Vaccines Completed 07/24/2000, 02/07/2000, 08/20/1999 HPV Vaccines Aged Out No longer eligi ble based on patient's age to complete this topic Hepatitis A Vaccines Aged Out No long er eligible based on patient's age to complete this topic Meningococcal ACWY Vaccine Aged Out N o longer eligible based on patient's age to complete this topic Meningococcal B Vaccine Aged Out No l onger eligible based on patient's age to complete this topic RSV Immunization Patients Under 20 months Aged Out No longer eligible based on patient's age to complete this topic Varicella Vaccines Aged Out No longer eligible based on patient's age to complete this topic Procedures Procedure Name Priority Date/Time Associated Diagnosis Comments LIPID PANEL WITH REFLEX TO DIRECT LDL Routine 05/27/2024 2:19 PM EST Mixed hyperlipidemia from Last 3 Months or Most Recently Relevant to Health Maintenance Results * (ABNORMAL) Lipid panel with reflex to direct LDL (05/27/2024 2:19 PM EST) [facility] Cholesterol 205(H) 0 - 200 mg/dL LAB CHEMISTRY METHOD 05/27/2024 7:00 PM EST [facility] Triglycerides 164(H) 0 - 150 mg/dL LAB CHEMISTRY METHOD 05/27/2024 7:00 PM [facility] HDL 38(L) >=40 mg/dL LAB CHEMISTRY METHOD 05/27/2024 7:00 PM [facility] LDL Calculated 134(H) 0 - 100 mg/dL LAB CHEMISTRY METHOD 05/27/2024 7:00 PM [facility] VLDL Cholesterol Bienvenido 32.8 mg/dL LAB CHEMISTRY METHOD 05/27/2024 7:00 PM [facility] Non HDL Chol. (LDL+VLDL) 167(H) <145 mg/dL LAB CHEMISTRY METHOD 05/27/2024 7:00 PM [facility] Chol/HDL Ratio 5.4(H) 0.0 - 4.4 LAB CHEMISTRY METHOD 05/27/2024 7:00 PM [facility] Blood Venous blood specimen / Unknown Venipuncture / Unknown 05/27/2024 2:19 PM EST 05/27/2024 2:19 PM EST Chad Pacheco MD LAB BLOOD ORDERABLES Felisa lovett Result [facility] [address] [place] [address], from Last 3 Months or Most Recently Relevant to Health Maintenance Insurance [facility] Care Teams Dramatic Critic Relationship Specialty Start Date End Date Alfredo Nur MD [address] [place] [id number] PCP - General Internal Medicine 07/02/21
[2025-02-10 18:27] VITALS: BP 106/58; PULSE 95; RESP 16; TEMP 36.8; O2SAT 95
[2025-02-10 20:01] VITALS: BP 106/58; PULSE 95; RESP 16; TEMP 36.8; O2SAT 95
== END 2025-02-10 20:01 | disposition home or self-care (01) ==
PROVIDERS: Emergency Provider Student in an Organized Health Care Education/Training Program
DX: J45.901 Unspecified asthma with (acute) exacerbation (principal); R51.9 Headache, unspecified; Z72.0 Tobacco use
CPT/HCPCS: 94640; 96374; 96375; 99284; J1200; J1308; J2919